=== PATIENT | female | born 1975 | race Caucasian/White ===

== ENCOUNTER 2018-01-13 09:19 | Emergency (ER) | payer OTHER ==
--- NOTE | 2018-01-13 09:40 | EDM.PDOC ---
ED HPI GENERAL MEDICAL PROBLEM - General Stated Complaint: CHEST PAIN Time Seen by Provider: 01/13/18 09:19 Source of Information: Reports: Patient, Family (so) History Limitations: Reports: No Limitations - History of Present Illness INITIAL COMMENTS - FREE TEXT/NARRATIVE: 42 y.o.w.f -smoker-came with her SO to the ed due to chest pain, weakness and dizziness. This is the first time this happened to her. Pt denies any cardiac reisfactors but Tobacco use. Cholesterol level was never checked in the past. Pt never eats breakfast, denies trauma. Pt describes the pain as burning pressure at her mid upper chest of 4/10 on the pain scale 0-10. No N/V/D no Diaphoresis or any other acute medical issues. BP 139/77 pulse 74 RR 16 Pulse ox 99% on RA temp 36.8 Onset Date: 01/13/18 Onset Time: 05:00 Duration: Hour(s):, Intermittent Location: Reports: Generalized Quality: Reports: Ache, Burning Severity: Moderate Improves with: Reports: Rest Worsens with: Reports: Movement Context: Reports: Other (smokes ) Associated Symptoms: Reports: Other (dizzy) left upper chest Pain Score (Numeric/FACES): 1 - Related Data Allergies Allergy/AdvReac Type Severity Reaction Status Date / Time Latex, Natural Rubber Allergy Itching Verified 01/13/18 09:37 prochlorperazine edisylate Allergy Vomiting Verified 01/13/18 09:37 [From Compazine] prochlorperazine maleate Allergy Vomiting Verified 01/13/18 09:37 [From Compazine] Home Meds: Home Meds Levothyroxine 112 mcg PO DAILY 12/19/14 [History] Past Medical History Other Musculoskeletal History: fx L ankle Social & Family History - Tobacco Use Smoking Status *Q: Current Every Day Smoker Years of Tobacco use: 25 - Alcohol Use Days Per Week of Alcohol Use: 0 - Recreational Drug Use Recreational Drug Use: No ED ROS GENERAL - Review of Systems Review Of Systems: See Below Constitutional: Reports: No Symptoms HEENT: Reports: No Symptoms Respiratory: Reports: No Symptoms Cardiovascular: Reports: Chest Pain Endocrine: Reports: No Symptoms GI/Abdominal: Reports: No Symptoms : Reports: No Symptoms Musculoskeletal: Reports: No Symptoms Skin: Reports: No Symptoms Neurological: Reports: No Symptoms Psychiatric: Reports: No Symptoms Hematologic/Lymphatic: Reports: No Symptoms Immunologic: Reports: No Symptoms ED EXAM, GENERAL - Physical Exam Exam: See Below Exam Limited By: No Limitations General Appearance: Alert, WD/WN, Mild Distress Eye Exam: Bilateral Eye: Normal Inspection Ears: Normal External Exam Ear Exam: Bilateral Ear: Auricle Normal Nose: Normal Inspection, Normal Mucosa, No Blood Throat/Mouth: Normal Inspection, Normal Lips, Normal Voice, No Airway Compromise Head: Atraumatic, Normocephalic Neck: Normal Inspection, Supple, Non-Tender, Full Range of Motion Respiratory/Chest: No Respiratory Distress, Lungs Clear, Normal Breath Sounds, No Accessory Muscle Use, Chest Non-Tender Cardiovascular: Normal Peripheral Pulses, Regular Rate, Rhythm, No Edema, No Gallop, No JVD, No Murmur Peripheral Pulses: 1+: Radial (L) GI/Abdominal: Normal Bowel Sounds, Soft, Non-Tender, No Organomegaly, No Abnormal Bruit, No Mass (Female) Exam: Deferred Rectal (Female) Exam: Deferred Back Exam: Normal Inspection, Full Range of Motion Extremities: Normal Inspection, Normal Range of Motion, Non-Tender, No Pedal Edema Neurological: Alert, Oriented, CN II-XII Intact, Normal Cognition, Normal Gait, No Motor/Sensory Deficits Psychiatric: Normal Affect, Normal Mood Skin Exam: Warm, Dry, Intact Lymphatic: No Adenopathy EKG INTERPRETATION EKG Date: 01/13/18 Time: 09:25 Rhythm: NSR Rate (Beats/Min): 77 [place]: Normal P-Wave: Present QRS: Normal ST-T: Normal QT: Normal Comparison: NA - No Prior EKG Course - Vital Signs Text/Narrative:: 42 y.o.w.f -smoker-came with her SO to the ed due to chest pain, weakness and dizziness. This is the first time this happened to her. Pt denies any cardiac reisfactors but Tobacco use. Cholesterol level was never checked in the past. Pt never eats breakfast, denies trauma. Pt describes the pain as burning pressure at her mid upper chest of 4/10 on the pain scale 0-10. No N/V/D no Diaphoresis or any other acute medical issues. BP 139/77 pulse 74 RR 16 Pulse ox 99% on RA temp 36.8 PE: WNWD W F came with her to the ed due to mi upper chest pain with weakness and dizziness, new event, smoker. Denies drug use. Imaging: CXR: NAD official report is pending Labs: CBC, BMP,D DImer and troponin were neg (4 hours Troponin level was neg as well) Chol/hdl ratio was elevated Impression: Atypical chest pain, Elevated cholesterol/HDL ratio Tx: NS, Protonix NTG one tabl SL 12.27 pm Consultation:Kevin Hospitalist: Repeat Troponin, if neg F/U in the clinic for a Cardiac stress test Reexam: Pt was entirely pain free when she left the ED with her Plan: D/C with instructions Last Recorded V/S: Last Vital Signs Temp 36.6 C 01/13/18 13:30 Pulse 65 01/13/18 13:30 Resp 15 01/13/18 13:30 BP 107/72 01/13/18 13:30 Pulse Ox 99 01/13/18 13:30 - Orders/Labs/Meds Orders: Active Orders 24 hr Category Date Time Status CXR [Chest 2V] [CR] Stat Exams 01/13/18 11:22 Taken HCG QUALITATIVE,URINE [URCHEM] Stat Lab 01/13/18 10:15 Ordered UA W/MICROSCOPIC [URIN] Stat Lab 01/13/18 10:15 Ordered EKG 12 Lead [EK] Routine Ther 01/13/18 09:55 Ordered Labs: Laboratory Tests 01/13/18 01/13/18 01/13/18 Range/Units 09:50 09:50 09:50 WBC 6.4 (4.5-12.0) X10-3/uL RBC 5.04 (3.23-5.20) x10(6)uL Hgb 12.6 (11.5-15.5) g/dL Hct 39.1 (30.0-51.3) % MCV 77.6 L (80-96) fL MCH 25.1 L (27.7-33.6) pg MCHC 32.3 (32.2-35.4) g/dL RDW 15.3 (11.5-15.5) % Plt Count 320 (125-369) X10(3)uL MPV 8.5 (7.4-10.4) fL Neut % (Auto) 72.4 (46-82) % Lymph % (Auto) 21.1 (13-37) % [place] % (Auto) 5.3 (4-12) % Eos % (Auto) 1 (1.0-5.0) % Baso % (Auto) 0 (0-2) % Neut # (Auto) 4.7 (1.6-8.3) # Lymph # (Auto) 1.3 (0.6-5.0) # [place] # (Auto) 0.3 (0.0-1.3) # Eos # (Auto) 0.1 (0.0-0.8) # Baso # (Auto) 0.0 (0.0-0.2) # PT 10.4 (8.7-11.1) INR 1.03 (0.89-1.13) D-Dimer, Quantitative 292 (100-400) ng/mL Sodium (135-145) mmol/L Potassium (3.5-5.3) mmol/L Chloride (100-110) mmol/L Carbon Dioxide (21-32) mmol/L BUN (7-18) mg/dL Creatinine (0.55-1.02) mg/dL Est Cr Clr Drug Dosing Estimated GFR (MDRD) (>60) BUN/Creatinine Ratio (9-20) Glucose (80-116) mg/dL Calcium (8.6-10.2) mg/dL Troponin I (<0.017-0.056) ng/mL Triglycerides (15-150) mg/dL Cholesterol (50-200) mg/dL LDL Cholesterol Direct (60-130) mg/dL HDL Cholesterol (40-75) mg/dL Cholesterol/HDL Ratio (0-5) TSH, Ultra Sensitive (0.36-3.74) IU/mL Urine Color (YELLOW) Urine Appearance (CLEAR) Urine pH (5.0-6.5) Ur Specific [place] (1.010-1.025) Urine Protein (NEGATIVE) mg/dL Urine Glucose (UA) (NEGATIVE) mg/dL Urine Ketones (NEGATIVE) mg/dL Urine Occult Blood (NEGATIVE) Urine Nitrite (NEGATIVE) Urine Bilirubin (NEGATIVE) Urine Urobilinogen (NEGATIVE) mg/dL Ur Leukocyte Esterase (NEGATIVE) Urine WBC (0) Ur Squamous Epith Cells (NS,R,O) Urine Bacteria (NS) Urine HCG, Qual (NEGATIVE) 01/13/18 01/13/1801/13/18 Range/Units 09:50 09:50 10:15 WBC (4.5-12.0) X10-3/uL RBC (3.23-5.20) x10(6)uL Hgb (11.5-15.5) g/dL Hct (30.0-51.3) % MCV (80-96) fL MCH (27.7-33.6) pg MCHC (32.2-35.4) g/dL RDW (11.5-15.5) % Plt Count (125-369) X10(3)uL MPV (7.4-10.4) fL Neut % (Auto) (46-82) % Lymph % (Auto) (13-37) % [place] % (Auto) (4-12) % Eos % (Auto) (1.0-5.0) % Baso % (Auto) (0-2) % Neut # (Auto) (1.6-8.3) # Lymph # (Auto) (0.6-5.0) # [place] # (Auto) (0.0-1.3) # Eos # (Auto) (0.0-0.8) # Baso # (Auto) (0.0-0.2) # PT (8.7-11.1) INR (0.89-1.13) D-Dimer, Quantitative (100-400) ng/mL Sodium 140 (135-145) mmol/L Potassium 3.5 (3.5-5.3) mmol/L Chloride 104 (100-110) mmol/L Carbon Dioxide 24 (21-32) mmol/L BUN 10 (7-18) mg/dL Creatinine 0.7 (0.55-1.02) mg/dL Est Cr Clr Drug Dosing TNP Estimated GFR (MDRD) > 60 (>60) BUN/Creatinine Ratio 14.3 (9-20) Glucose 112 (80-116) mg/dL Calcium 8.2 L (8.6-10.2) mg/dL Troponin I < 0.017 L (<0.017-0.056) ng/mL Triglycerides (15-150) mg/dL Cholesterol (50-200) mg/dL LDL Cholesterol Direct (60-130) mg/dL HDL Cholesterol (40-75) mg/dL Cholesterol/HDL Ratio (0-5) TSH, Ultra Sensitive 0.65 (0.36-3.74) IU/mL Urine Color Yellow (YELLOW) Urine Appearance Clear (CLEAR) Urine pH 7.0 H (5.0-6.5) Ur Specific [place] 1.010 (1.010-1.025) Urine Protein Negative (NEGATIVE) mg/dL Urine Glucose (UA) Normal (NEGATIVE) mg/dL Urine Ketones Negative (NEGATIVE) mg/dL Urine Occult Blood Negative (NEGATIVE) Urine Nitrite Negative (NEGATIVE) Urine Bilirubin Negative (NEGATIVE) Urine Urobilinogen Normal (NEGATIVE) mg/dL Ur Leukocyte Esterase Negative (NEGATIVE) Urine WBC 0-5 (0) Ur Squamous Epith Cells Few H (NS,R,O) Urine Bacteria Few H (NS) Urine HCG, Qual (NEGATIVE) 01/13/18 01/13/18 01/13/18 Range/Units 10:15 12:50 12:50 WBC (4.5-12.0) X10-3/uL RBC (3.23-5.20) x10(6)uL Hgb (11.5-15.5) g/dL Hct (30.0-51.3) % MCV (80-96) fL MCH (27.7-33.6) pg MCHC (32.2-35.4) g/dL RDW (11.5-15.5) % Plt Count (125-369) X10(3)uL MPV (7.4-10.4) fL Neut % (Auto) (46-82) % Lymph % (Auto) (13-37) % [place] % (Auto) (4-12) % Eos % (Auto) (1.0-5.0) % Baso % (Auto) (0-2) % Neut # (Auto) (1.6-8.3) # Lymph # (Auto) (0.6-5.0) # [place] # (Auto) (0.0-1.3) # Eos # (Auto) (0.0-0.8) # Baso # (Auto) (0.0-0.2) # PT (8.7-11.1) INR (0.89-1.13) D-Dimer, Quantitative (100-400) ng/mL Sodium (135-145) mmol/L Potassium (3.5-5.3) mmol/L Chloride (100-110) mmol/L Carbon Dioxide (21-32) mmol/L BUN (7-18) mg/dL Creatinine (0.55-1.02) mg/dL Est Cr Clr Drug Dosing Estimated GFR (MDRD) (>60) BUN/Creatinine Ratio (9-20) Glucose (80-116) mg/dL Calcium (8.6-10.2) mg/dL Troponin I < 0.017 L (<0.017-0.056) ng/mL Triglycerides 116 (15-150) mg/dL Cholesterol 170 (50-200) mg/dL LDL Cholesterol Direct 128 (60-130) mg/dL HDL Cholesterol 27 L (40-75) mg/dL Cholesterol/HDL Ratio 6.3 H (0-5) TSH, Ultra Sensitive (0.36-3.74) IU/mL Urine Color (YELLOW) Urine Appearance (CLEAR) Urine pH (5.0-6.5) Ur Specific [place] (1.010-1.025) Urine Protein (NEGATIVE) mg/dL Urine Glucose (UA) (NEGATIVE) mg/dL Urine Ketones (NEGATIVE) mg/dL Urine Occult Blood (NEGATIVE) Urine Nitrite (NEGATIVE) Urine Bilirubin (NEGATIVE) Urine Urobilinogen (NEGATIVE) mg/dL Ur Leukocyte Esterase (NEGATIVE) Urine WBC (0) Ur Squamous Epith Cells (NS,R,O) Urine Bacteria (NS) Urine HCG, Qual Negative (NEGATIVE) Meds: Medications Discontinued Medications Generic Name Dose Route Start Last Admin Trade Name Freq PRN Reason Stop Dose Admin Aspirin 324 mg 01/13/18 09:55 01/13/18 09:20 Aspirin PO 01/13/18 09:56 324 mg ONETIME ONE Administration Sodium Chloride 1,000 mls @ 125 mls/hr 01/13/18 09:45 01/13/18 10:12 Normal Saline IV 125 mls/hr ASDIRECTED DAREN Administration Nitroglycerin 0.4 mg 01/13/18 12:05 01/13/18 12:07 Nitrostat SL 01/13/18 12:06 0.4 mg ONETIME ONE Administration Pantoprazole Sodium 40 mg 01/13/18 09:43 01/13/18 10:28 Protonix Iv IVPUSH 01/13/18 09:44 40 mg ONETIME ONE Administration Departure - Departure Time of Disposition: 13:18 Disposition: Home, Self-Care 01 Condition: Good Clinical Impression: Atypical chest pain, Elevated ratio of cholesterol to high density lipoprotein Instructions: Cholesterol, [id number], Preventing High Cholesterol, Nonspecific Chest Pain, [id number] Referrals: Tim Brown MD [Primary Care Provider] - Forms: ED Department Discharge Additional Instructions: Please f/u with your PMD to be scheduled for a cardiac stress test. Please f/u, please come back if your symptoms get worse acutely - My Orders Last 24 Hours: My Active Orders 01/13/18 09:55 EKG 12 Lead [EK] Routine 01/13/18 10:15 HCG QUALITATIVE,URINE [URCHEM] Stat UA W/MICROSCOPIC [URIN] Stat 01/13/18 11:22 CXR [Chest 2V] [CR] Stat - Assessment/Plan Last 24 Hours: My Active Orders 01/13/18 09:55 EKG 12 Lead [EK] Routine 01/13/18 10:15 HCG QUALITATIVE,URINE [URCHEM] Stat UA W/MICROSCOPIC [URIN] Stat 01/13/18 11:22 CXR [Chest 2V] [CR] Stat
[2018-01-13] MEDS ORDERED: Pantoprazole 40 MG Vial IVPUSH ONE (09:43)
[2018-01-13] MEDS ORDERED: Sodium Chloride 0.9% 1,000 ML IV SCH (09:45)
[2018-01-13] MEDS ORDERED: Aspirin 81 MG Tab.Chew PO ONE (09:55)
[2018-01-13] MEDS ORDERED: Nitroglycerin 0.4 MG Tab.SL SL ONE (12:05)
[2018-01-13 13:39] VITALS: BP 107/72
--- NOTE | 2018-01-13 15:23 | CR ---
INDICATION: Chest pain. CHEST: PA and lateral views of the chest on 01/13/2018 - no comparisons. Heart is normal in size and shape. Mediastinum and bony thorax were, for the most part, unremarkable with a very minimal dextroconvex scoliosis of the mid thoracic spine. Overlying EKG leads are noted. An active infiltrate or effusion was not identified. Clips are noted at the base of the neck. IMPRESSION: No acute process. MTDD
== END 2018-01-13 13:30 | disposition home or self-care (01) ==
LOC: FB.ED 09:19
DX: R07.89 Other chest pain (principal); E78.00 Pure hypercholesterolemia, unspecified; E78.89 Other lipoprotein metabolism disorders; F17.210 Nicotine dependence, cigarettes, uncomplicated; Z88.8 Allergy status to other drugs, medicaments and biological substances; Z91.040 Latex allergy status
CPT/HCPCS: 36415; 71046; 80048; 80061; 81001; 81025; 84443; 84484; 85025; 85379; 85610; 93005; 96361; 96374; 99285; A9270; C9113; J7040

== ENCOUNTER 2019-03-15 18:25 | Emergency (ER) | payer OTHER ==
[2019-03-15] MEDS ORDERED: ALPRAZolam 0.5 MG Tab PO ONE (18:26)
[2019-03-15] MEDS ORDERED: Sodium Chloride 0.9% 10 ML Syringe FLUSH PRN (18:41)
[2019-03-15] MEDS ORDERED: Aspirin 81 MG Tab.Chew PO ONE (18:46)
[2019-03-15] MEDS ORDERED: Pantoprazole 40 MG Vial IVPUSH ONE (18:51)
[2019-03-15 19:21] VITALS: BP 155/89
--- NOTE | 2019-03-15 19:52 | EDM.PDOC ---
ED HPI GENERAL MEDICAL PROBLEM - General Chief Complaint: Chest Pain Stated Complaint: CHEST PAIN Time Seen by Provider: 03/15/19 19:47 Source of Information: Reports: Patient History Limitations: Reports: No Limitations - History of Present Illness INITIAL COMMENTS - FREE TEXT/NARRATIVE: Darline is a 43-year-old female with chest pain. She described retrosternal pain radiating to the neck that was of sudden onset along with difficulty breathing. Also was accompanied by palpitations did not respond to nitroglycerin glycerin or aspirin. She's had this before not thinning more frequently. She has cardiac workup in December of last year with stress echo that was negative.She does smoke and otherwise has no other risk factors. 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 ED EXAM, GENERAL - Physical Exam Exam: See Below Exam Limited By: No Limitations General Appearance: Alert, WD/WN, No Apparent Distress Nose: Normal Inspection Throat/Mouth: Normal Inspection Head: Atraumatic Respiratory/Chest: No Respiratory Distress Extremities: Normal Inspection Course - Vital Signs Last Recorded V/S: Last Vital Signs Temp Pulse 78 03/15/19 18:30 Resp 19 03/15/19 18:30 BP 155/89 H 03/15/19 18:30 Pulse Ox 100 03/15/19 18:30 - Orders/Labs/Meds Orders: Active Orders 24 hr Category Date Time Status EKG Documentation Completion [RC] ASDIRECTED Care 03/15/19 18:42 Active CXR [Chest 1V Frontal] [CR] Stat Exams 03/15/19 18:43 Taken Sodium Chloride 0.9% [Saline Flush] Med 03/15/19 18:41 Active 10 ml FLUSH ASDIRECTED PRN Saline Lock Insert [OM.PC] Routine Oth 03/15/19 18:41 Ordered EKG 12 Lead [EK] Stat Ther 03/15/19 18:41 Ordered Medication Orders Sodium Chloride (Saline Flush) 10 ml FLUSH ASDIRECTED PRN PRN Reason: Keep Vein Open Last Admin: 03/15/19 19:05 Dose: 10 ml Labs: Laboratory Tests 03/15/19 03/15/19 03/15/19 Range/Units 18:50 18:50 18:50 WBC 8.9 (4.5-12.0) X10-3/uL RBC 4.74 (3.23-5.20) x10(6)uL Hgb 11.1 L (11.5-15.5) g/dL Hct 34.6 (30.0-51.3) % MCV 73.0 L (80-96) fL MCH 23.4 L (27.7-33.6) pg MCHC 32.0 L (32.2-35.4) g/dL RDW 15.2 (11.5-15.5) % Plt Count 385 H (125-369) X10(3)uL MPV 8.1 (7.4-10.4) fL Neut % (Auto) 55.5 (46-82) % Lymph % (Auto) 35.0 (13-37) % [place] % (Auto) 7.8 (4-12) % Eos % (Auto) 1 (1.0-5.0) % Baso % (Auto) 0 (0-2) % Neut # (Auto) 5.0 (1.6-8.3) # Lymph # (Auto) 3.1 (0.6-5.0) # [place] # (Auto) 0.7 (0.0-1.3) # Eos # (Auto) 0.1 (0.0-0.8) # Baso # (Auto) 0.0 (0.0-0.2) # PT 9.7 (8.7-11.1) INR 1.00 (0.89-1.13) APTT 27.6 (24.4-33.2) SECONDS D-Dimer, Quantitative 0.56 (0.0-0.59) mg/LFEU Sodium 143 (135-145) mmol/L Potassium 3.7 (3.5-5.3) mmol/L Chloride 103 (100-110) mmol/L Carbon Dioxide 27 (21-32) mmol/L BUN 9 (7-18) mg/dL Creatinine 0.9 (0.55-1.02) mg/dL Est Cr Clr Drug Dosing TNP Estimated GFR (MDRD) > 60 (>60) BUN/Creatinine Ratio 10.0 (9-20) Glucose 97 (80-116) mg/dL Calcium 8.6 (8.6-10.2) mg/dL Total Bilirubin 0.3 (0.1-1.3) mg/dL AST 12 (5-25) IU/L ALT 18 (12-36) U/L Alkaline Phosphatase 88 (56-112) IU/L Troponin I (<0.017-0.056) ng/mL Total Protein 7.3 (6.0-8.0) g/dL Albumin 3.7 (3.5-5.2) g/dL Globulin 3.6 g/dL Albumin/Globulin Ratio 1.0 // Range/Units 18:50 WBC (4.5-12.0) X10-3/uL RBC (3.23-5.20) x10(6)uL Hgb (11.5-15.5) g/dL Hct (30.0-51.3) % MCV (80-96) fL MCH (27.7-33.6) pg MCHC (32.2-35.4) g/dL RDW (11.5-15.5) % Plt Count (125-369) X10(3)uL MPV (7.4-10.4) fL Neut % (Auto) (46-82) % Lymph % (Auto) (13-37) % [place] % (Auto) (4-12) % Eos % (Auto) (1.0-5.0) % Baso % (Auto) (0-2) % Neut # (Auto) (1.6-8.3) # Lymph # (Auto) (0.6-5.0) # [place] # (Auto) (0.0-1.3) # Eos # (Auto) (0.0-0.8) # Baso # (Auto) (0.0-0.2) # PT (8.7-11.1) INR (0.89-1.13) APTT (24.4-33.2) SECONDS D-Dimer, Quantitative (0.0-0.59) mg/LFEU Sodium (135-145) mmol/L Potassium (3.5-5.3) mmol/L Chloride (100-110) mmol/L Carbon Dioxide (21-32) mmol/L BUN (7-18) mg/dL Creatinine (0.55-1.02) mg/dL Est Cr Clr Drug Dosing Estimated GFR (MDRD) (>60) BUN/Creatinine Ratio (9-20) Glucose (80-116) mg/dL Calcium (8.6-10.2) mg/dL Total Bilirubin (0.1-1.3) mg/dL AST (5-25) IU/L ALT (12-36) U/L Alkaline Phosphatase (56-112) IU/L Troponin I 0.017 (<0.017-0.056) ng/mL Total Protein (6.0-8.0) g/dL Albumin (3.5-5.2) g/dL Globulin g/dL Albumin/Globulin Ratio Meds: Medications Generic Name Dose Route Start Last Admin Trade Name Freq PRN Reason Stop Dose Admin Sodium Chloride 10 ml 03/15/19 18:41 03/15/19 19:05 Saline Flush FLUSH 10 ml ASDIRECTED PRN Administration Keep Vein Open Discontinued Medications Generic Name Dose Route Start Last Admin Trade Name Freq PRN Reason Stop Dose Admin Aspirin 324 mg 03/15/19 18:46 03/15/19 19:04 Aspirin PO 03/15/19 18:47 324 mg ONETIME ONE Administration Pantoprazole Sodium 40 mg 03/15/19 18:51 03/15/19 19:05 Protonix Iv IVPUSH 03/15/19 18:52 40 mg ONETIME ONE Administration Departure - Departure Time of Disposition: 19:51 Disposition: Home, Self-Care 01 Clinical Impression: Atypical chest pain Referrals: PCP,None [Primary Care Provider] - - Problem List & Annotations (1) Atypical chest pain SNOMED Code(s): 969522639 Code(s): R07.89 - OTHER CHEST PAIN Status: Acute Current Visit: Yes - Problem List Review Problem List Initiated/Reviewed/Updated: Yes - Assessment/Plan Plan: All tests negative. Possibility of ACS is low. DC home,trial of xana 0.5 mg po daily prn. See me in 2 weeks.Return to ED with any worsening symptoms
--- NOTE | 2019-03-16 11:42 | CR ---
INDICATION: Chest pain. CHEST 1 VIEW: AP portable upright view of the chest 03/15/19 was compared with 01/13/18 and revealed the heart to remain normal size and shape. Mediastinum was essentially unremarkable. Overlying EKG leads are noted. An active infiltrate or effusion was not identified. There is suggestion of exogenous obesity. IMPRESSION: No acute process. MTDD
== END 2019-03-15 19:58 | disposition home or self-care (01) ==
LOC: FB.ED 18:25
DX: R07.89 Other chest pain (principal); E03.9 Hypothyroidism, unspecified; Z91.040 Latex allergy status; Z88.8 Allergy status to other drugs, medicaments and biological substances
CPT/HCPCS: 36415; 71045; 80053; 84484; 85025; 85379; 85610; 85730; 93005; 96374; 99285; A9270; C9113

== ENCOUNTER 2019-03-23 20:17 | Emergency (ER) | payer OTHER ==
--- NOTE | 2019-03-23 20:28 | EDM.PDOC ---
ED HPI GENERAL MEDICAL PROBLEM - General Stated Complaint: CHEST PAIN Time Seen by Provider: 03/23/19 20:23 Source of Information: Reports: Patient, Family History Limitations: Reports: No Limitations - History of Present Illness INITIAL COMMENTS - FREE TEXT/NARRATIVE: 43 y.o.w.f - smoker- was seen at [facility] for C/P. All her labs were basically nl. Pt was CP free when she left the the ED at [place]. She was scheduled for an EST at 8 am this Tuesday. Pt came to our ED with her due to acute left ant chest pain. Pt was taking ASA in am and was taking NTG as well without help. No diaphoresis No N/V, no Dizziness. Pt rates the pain as 10/ 10. 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 Musculoskeletal History: fx L ankle Endocrine/Metabolic History: Reports: Hypothyroidism Oncologic (Cancer) History: Reports: Thyroid - Past Surgical History Female Surgical History: Reports: Tubal Ligation Endocrine Surgical History: Reports: Thyroidectomy Social & Family History - Family History Family Medical History: Unobtainable - Caffeine Use Caffeine Use: Reports: Coffee, Soda ED ROS GENERAL - Review of Systems Review Of Systems: See Below Constitutional: Reports: No Symptoms HEENT: Reports: No Symptoms Respiratory: Reports: No Symptoms Cardiovascular: Reports: Chest Pain Endocrine: Reports: No Symptoms GI/Abdominal: Reports: No Symptoms : Reports: No Symptoms Musculoskeletal: Reports: No Symptoms Skin: Reports: No Symptoms Neurological: Reports: No Symptoms Psychiatric: Reports: No Symptoms Hematologic/Lymphatic: Reports: No Symptoms Immunologic: Reports: No Symptoms ED EXAM, GENERAL - Physical Exam Exam: See Below Exam Limited By: No Limitations General Appearance: Alert, WD/WN, Mild Distress Eye Exam: Bilateral Eye: Normal Inspection Ears: Normal External Exam Ear Exam: Bilateral Ear: Auricle Normal Nose: Normal Inspection, Normal Mucosa Throat/Mouth: Normal Inspection, Normal Lips, Normal Voice, No Airway Compromise Head: Atraumatic, Normocephalic Neck: Normal Inspection, Supple, Non-Tender, Full Range of Motion Respiratory/Chest: No Respiratory Distress, Lungs Clear, Other (tender left chest) Cardiovascular: Normal Peripheral Pulses, Regular Rate, Rhythm, No Edema Peripheral Pulses: 1+: Brachial (L) GI/Abdominal: Normal Bowel Sounds, Soft, Non-Tender, No Organomegaly, No Abnormal Bruit, No Mass, Pelvis Stable (Female) Exam: Deferred Rectal (Female) Exam: Deferred Back Exam: Normal Inspection, Full Range of Motion Extremities: Normal Inspection, Normal Range of Motion Neurological: Alert, Oriented, CN II-XII Intact, Normal Cognition Psychiatric: Normal Affect, Normal Mood Skin Exam: Warm, Dry, Intact, Normal Color, No Rash Lymphatic: No Adenopathy EKG INTERPRETATION EKG Date: 03/23/19 Time: 20:20 Rhythm: NSR Rate (Beats/Min): 61 Bimble: Normal P-Wave: Present QRS: Normal ST-T: Other (T Wave inversion II aVF, Old) QT: Normal Comparison: No Change (from ECG taken today at [place]) Course - Vital Signs Text/Narrative:: 43 y.o.w.f - smoker- was seen at [facility] for C/P. All her labs were basically nl. Pt was CP free when she left the the ED at [place]. She was scheduled for an EST at 8 am this Tuesday. Pt came to our ED with her due to acute left ant chest pain. Pt was taking ASA in am and was taking NTG as well without help. No diaphoresis No N/V, no Dizziness. Pt rates the pain as 10/ 10. BP 151/84 O2 sat 99% on RA RR 15 Pulse 63 Temp 36.8 PE: WNWD WF witj left ant Chest pain Labs: Troponoin 0.017 D Dimer 0.77 ECG: No change from her prev ECG taken at [place] Impression: chest pain Tx: Toradol Reexam: C/P subsided 80% Plan: D/C with instructions - Orders/Labs/Meds Orders: Active Orders 24 hr Category Date Time Status EKG Documentation Completion [RC] ASDIRECTED Care 03/23/19 20:23 Active Ang Chest [CT] Stat Exams 03/23/19 21:24 Taken Labs: Laboratory Tests 03/23/19 03/23/19 03/23/19 Range/Units 20:35 20:35 20:35 WBC 10.7 (4.5-12.0) X10-3/uL RBC 4.86 (3.23-5.20) x10(6)uL Hgb 11.3 L (11.5-15.5) g/dL Hct 35.5 (30.0-51.3) % MCV 73.1 L (80-96) fL MCH 23.2 L (27.7-33.6) pg MCHC 31.8 L (32.2-35.4) g/dL RDW 15.4 (11.5-15.5) % Plt Count 319 (125-369) X10(3)uL MPV 8.6 (7.4-10.4) fL Neut % (Auto) 69.2 (46-82) % Lymph % (Auto) 22.1 (13-37) % [place] % (Auto) 7.3 (4-12) % Eos % (Auto) 1 (1.0-5.0) % Baso % (Auto) 1 (0-2) % Neut # (Auto) 7.3 (1.6-8.3) # Lymph # (Auto) 2.4 (0.6-5.0) # [place] # (Auto) 0.8 (0.0-1.3) # Eos # (Auto) 0.1 (0.0-0.8) # Baso # (Auto) 0.1 (0.0-0.2) # PT 10.1 (8.7-11.1) INR 1.04 (0.89-1.13) D-Dimer, Quantitative 0.77 H (0.0-0.59) mg/LFEU Sodium 142 (135-145) mmol/L Potassium 3.2 L (3.5-5.3) mmol/L Chloride 105 (100-110) mmol/L Carbon Dioxide 23 (21-32) mmol/L BUN 10 (7-18) mg/dL Creatinine 0.8 (0.55-1.02) mg/dL Est Cr Clr Drug Dosing TNP Estimated GFR (MDRD) > 60 (>60) BUN/Creatinine Ratio 12.5 (9-20) Glucose 92 (80-116) mg/dL Calcium 9.0 (8.6-10.2) mg/dL Magnesium (1.8-2.5) mg/dL Troponin I (<0.017-0.056) ng/mL 03/23/19 03/23/19 Range/Units 20:35 20:35 WBC (4.5-12.0) X10-3/uL RBC (3.23-5.20) x10(6)uL Hgb (11.5-15.5) g/dL Hct (30.0-51.3) % MCV (80-96) fL MCH (27.7-33.6) pg MCHC (32.2-35.4) g/dL RDW (11.5-15.5) % Plt Count (125-369) X10(3)uL MPV (7.4-10.4) fL Neut % (Auto) (46-82) % Lymph % (Auto) (13-37) % [place] % (Auto) (4-12) % Eos % (Auto) (1.0-5.0) % Baso % (Auto) (0-2) % Neut # (Auto) (1.6-8.3) # Lymph # (Auto) (0.6-5.0) # [place] # (Auto) (0.0-1.3) # Eos # (Auto) (0.0-0.8) # Baso # (Auto) (0.0-0.2) # PT (8.7-11.1) INR (0.89-1.13) D-Dimer, Quantitative (0.0-0.59) mg/LFEU Sodium (135-145) mmol/L Potassium (3.5-5.3) mmol/L Chloride (100-110) mmol/L Carbon Dioxide (21-32) mmol/L BUN (7-18) mg/dL Creatinine (0.55-1.02) mg/dL Est Cr Clr Drug Dosing Estimated GFR (MDRD) (>60) BUN/Creatinine Ratio (9-20) Glucose (80-116) mg/dL Calcium (8.6-10.2) mg/dL Magnesium 2.1 (1.8-2.5) mg/dL Troponin I < 0.017 L (<0.017-0.056) ng/mL Meds: Medications Discontinued Medications Generic Name Dose Route Start Last Admin Trade Name Freq PRN Reason Stop Dose Admin Iopamidol 75 ml 03/23/19 21:31 03/23/19 21:48 Isovue-370 (76%) IV 03/23/19 21:32 75 ml ONETIME ONE Administration Ketorolac Tromethamine 60 mg 03/23/19 20:30 03/23/19 20:30 Toradol IM 03/23/19 20:31 60 mg ONETIME ONE Administration Potassium Chloride 40 meq 03/23/19 21:12 03/23/19 21:15 Klor-Con M20 PO 03/23/19 21:13 40 meq ONETIME ONE Administration Departure - Departure Time of Disposition: 23:22 Disposition: Home, Self-Care 01 Condition: Good Clinical Impression: Chest pain Qualifiers: Ischemic chest pain type: other angina pectoris type Referrals: Tim Brown MD [Primary Care Provider] - Forms: ED Department Discharge Additional Instructions: Please cont your pain meds as recommended, please f/u with [facility] for your Cardiac stress test as scheduled for 8 am. Please come back if your symptoms get worse acutely. - My Orders Last 24 Hours: My Active Orders 03/23/19 20:23 EKG Documentation Completion [RC] ASDIRECTED 03/23/19 21:24 Ang Chest [CT] Stat - Assessment/Plan Last 24 Hours: My Active Orders 03/23/19 20:23 EKG Documentation Completion [RC] ASDIRECTED 03/23/19 21:24 Ang Chest [CT] Stat
[2019-03-23] MEDS ORDERED: Ketorolac 60 MG/2 ML SDV IM ONE (20:30)
[2019-03-23] MEDS ORDERED: Potassium Chloride 20 MEQ Tab.ER PO ONE (21:12)
[2019-03-23] MEDS ORDERED: Iopamidol 755 Mg/ML 75 ML Bottle IV ONE (21:31)
== END 2019-03-23 23:40 | disposition home or self-care (01) ==
LOC: FB.ED 20:17
DX: I20.8 Other forms of angina pectoris (principal); E03.9 Hypothyroidism, unspecified; Z79.899 Other long term (current) drug therapy; Z88.8 Allergy status to other drugs, medicaments and biological substances; Z98.51 Tubal ligation status; Z91.040 Latex allergy status
CPT/HCPCS: 36415; 71275; 80048; 83735; 84484; 85025; 85379; 85610; 93005; 96372; 99285; A9270; J1885; Q9967

== ENCOUNTER 2019-03-26 23:33 | Emergency (ER) | payer OTHER ==
[2019-03-26] MEDS ORDERED: Cyclobenzaprine 10 MG Tab PO ONE (23:34)
[2019-03-26] MEDS ORDERED: Nitroglycerin 0.4 MG Tab.SL SL PRN (23:52)
--- NOTE | 2019-03-27 01:38 | EDM.PDOC ---
ED HPI GENERAL MEDICAL PROBLEM - General Chief Complaint: Upper Extremity Injury/Pain Stated Complaint: ARM PAIN Time Seen by Provider: 03/27/19 01:05 Source of Information: Reports: Patient History Limitations: Reports: No Limitations - History of Present Illness INITIAL COMMENTS - FREE TEXT/NARRATIVE: Patient is a very pleasant 43-year-old female who presents today with concern for left arm and shoulder pain which was worsening and she was trying to sleep tonight. She states that she relaxed into her bed, she had worsening pain from the back of her shoulder and down her left arm going below the elbow, so she went downstairs and checked her blood pressure and noted that it was 150/100 and she just didn't feel right. She went back upstairs, her up and came to the ER. She has had this sharp shooting pain before and was actually just recently evaluated emergency room for chest pain, up in [place] and recommended for high sensitivity stress test but it was not scheduled as it was supposed to be. She has had pain between her shoulder blades for some time and was recently referred to a general surgeon to remove a lump on her back. She has been using icy hot with lidocaine in the area and when her significant other rubs and it does cause referred pain into her left shoulder similar to what she is having now. She has not noticed any new dyspnea on exertion, was not sweaty, was not nauseous, was not short of breath and has not had any cough. She has not noticed any recent swelling in her legs, dizziness or syncope. She has no history of diabetes, but is a pack per day smoker. There is no significant family cardiac history. She was started on metoprolol 12.5 mg twice a day and a baby aspirin daily by the essentially ER last week and also given nitroglycerin but has not been willing to take it because she thought that she couldn't take along with the metoprolol since. 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 Musculoskeletal History: fx L ankle, lump in subcutaneous tissues of back thoracic area Endocrine/Metabolic History: Reports: Hypothyroidism Oncologic (Cancer) History: Reports: Thyroid - Past Surgical History Female Surgical History: Reports: Tubal Ligation Endocrine Surgical History: Reports: Thyroidectomy Dermatological Surgical History: Reports: Other (See Below) Social & Family History - Family History Family Medical History: Noncontributory - Tobacco Use Smoking Status *Q: Current Every Day Smoker Years of Tobacco use: 30 Packs/Tins Daily: 1 - Caffeine Use Caffeine Use: Reports: Coffee, Soda - Alcohol Use Alcohol Use History: No - Recreational Drug Use Recreational Drug Use: No ED ROS GENERAL - Review of Systems Review Of Systems: ROS reveals no pertinent complaints other than HPI. ED EXAM, GENERAL - Physical Exam Exam: See Below Free Text/Narrative:: Gen.: Alert, very pleasant in no acute distress. Neck is supple and movement of her neck does not reproduce any symptoms in her arms, she has full range of motion and negative Adson's test. Her strength is +5 out of 5 bilaterally in both the upper and lower extremities with no focal weakness on specific testing of the left arm. Her reflexes are +2 out of 4 in both the upper and lower extremities bilaterally. She has no sensation deficits. Heart is regular rate and rhythm, lungs are clear throughout with no wheezes or crackles. She has a freely mobile, well circumscribed approximately 2-3 cm lump just to the left side of her thoracic spine along her shoulder blade, and palpation over this area causes a shooting pain which nearly very directly reproduces all of her symptoms. She also has a couple of tender points in the upper trapezius area which also reproduces some of her symptoms. EKG INTERPRETATION Rhythm: NSR ST-T: Normal Comparison: No Change EKG Interpretation Comments: abnormality noted in T waves has been present since 2018 Course - Vital Signs Text/Narrative:: Initial evaluation completed in patient with history seems much more likely to be musculoskeletal than cardiac in origin at this point. She reports she has had these symptoms for some time, but has become worried because of the recent emphasis on her heart when she was sent to the emergency room after presenting to PT a week ago. She states that all of her symptoms are much better with movement, and she has not had any dyspnea, sweating, nausea or shortness of breath with activity. He does have some risk factors, most significantly being that she is a pack per day smoker. I spoke with the patient at length regarding workup tonight I do not think she necessarily needs a cardiac rule out at this time given her recent negative workup, but I did strongly encourage her to call in the morning regarding stress testing getting that rescheduled. If she is unable to get through up in [place] recommended she call her local PCP and see if they can help. She will need to have a stress test completed prior to any surgery to remove a lump on her back, and also will help guide any physical therapy if she does have recurrent arm pain during sessions. Also discussed at length signs and symptoms of angina, myocardial infarction, use of nitroglycerin and continue to abstain from use of NSAIDs at this time. I wonder about using gabapentin given the referred nerve pain in her back and left shoulder. I do not prescribe this medication out of the emergency room, but did offer to give her some Flexeril to try home and see if this helps her sleep. She was in agreement with this plan and will follow up with PCP on Tuesday as scheduled Last Recorded V/S: Last Vital Signs Temp 36.9 C 03/26/19 23:33 Pulse 73 03/27/19 00:03 Resp 17 03/26/19 23:33 BP 127/73 03/27/19 00:03 Pulse Ox 99 03/26/19 23:33 - Orders/Labs/Meds Meds: Medications Discontinued Medications Generic Name Dose Route Start Last Admin Trade Name Freq PRN Reason Stop Dose Admin Nitroglycerin 0.4 mg 03/26/19 23:52 03/26/19 23:53 Nitrostat SL 0.4 mg Q5M PRN Administration Chest Pain Departure - Departure Time of Disposition: 01:33 Disposition: Home, Self-Care 01 Condition: Good Clinical Impression: Shoulder pain, left - Discharge Information *PRESCRIPTION DRUG MONITORING PROGRAM REVIEWED*: Yes *COPY OF PRESCRIPTION DRUG MONITORING REPORT IN PATIENT RAKEL: No Referrals: Tim Brown MD [Primary Care Provider] - Forms: ED Department Discharge Additional Instructions: call number on paperwork in AM to see if stress test needs to be scheduled. If no information, call Dr. Engle's office and let them know you have been evaluated multiple times and need a stress test completed per the recommendations from last Tuesday as soon as possible. Follow-up on Tuesday with Dr. Engle. I suspect your pain is actually related to the interaction between muscles, nerves and the mechanics of your shoulder. there are lots of options for treatment, however it may take some time to figure out the right one. Physical therapy will likely be quite helpful. A small number of muscle relaxers given tonight you can try as well. Pain that IMPROVES with activity is unlikely to be related to your heart. Pain that WORSENS with activity, estefany if accompanied by sweats, nausea, or feeling like you might pass out -- take nitro if BP is elevated (greater than 140 top number) and see if improves. This kind of pain, discomfort or group of symptoms would also be reason to get rechecked in the ER. Blood pressure can be affected by pain, activity, stress/worry, but can also directly impact the heart as well, so elevated blood pressure with persistent above symptoms is also cause for concern. see handout for other information UNTIL YOUR HEART HAS BEEN TESTED IN A STRESS TEST, DO NOT FEEL ASHAMED/BAD/ WORRIED ABOUT RETURNING TO ER FOR RECHECK (even though I know its gotten annoying) Take very good care,
[2019-03-27 02:32] VITALS: BP 127/73; PULSE 73
== END 2019-03-27 02:00 | disposition home or self-care (01) ==
LOC: FB.ED 23:33
DX: M25.512 Pain in left shoulder (principal); I10 Essential (primary) hypertension; E03.9 Hypothyroidism, unspecified; F17.210 Nicotine dependence, cigarettes, uncomplicated; Z91.040 Latex allergy status; Z88.8 Allergy status to other drugs, medicaments and biological substances; Z79.899 Other long term (current) drug therapy
CPT/HCPCS: 99284; A9270

== ENCOUNTER 2019-04-02 20:20 | Emergency (ER) | payer OTHER ==
--- NOTE | 2019-04-02 21:21 | EDM.PDOC ---
ED HPI GENERAL MEDICAL PROBLEM - General Chief Complaint: Chest Pain Stated Complaint: CHEST PAIN Time Seen by Provider: 04/02/19 20:35 Source of Information: Reports: Patient, Old Records History Limitations: Reports: No Limitations - History of Present Illness INITIAL COMMENTS - FREE TEXT/NARRATIVE: Darline returns to [facility] ED for the 4th time in the past 18 days with stabbing pain in the L anterior chest that radiates into the medial L arm. Sxs appeared spontaneously with some palpitations, but no aure SOB, heaviness, sweats, or lt headiness. She has been worked up numerous times here at [facility] and has seen a magazine keeper in [place] for stress testing, results inconclusive at this time. A chest CT was also reportedly negative. She is currently taking an 81 mg ASA tab for prophylaxis, and no other analgesics. 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 Musculoskeletal History: fx L ankle, lump in subcutaneous tissues of back thoracic area Endocrine/Metabolic History: Reports: Hypothyroidism Oncologic (Cancer) History: Reports: Thyroid - Past Surgical History Female Surgical History: Reports: Tubal Ligation Endocrine Surgical History: Reports: Thyroidectomy Dermatological Surgical History: Reports: Other (See Below) Social & Family History - Family History Family Medical History: Noncontributory - Tobacco Use Smoking Status *Q: Current Every Day Smoker Years of Tobacco use: 30 Packs/Tins Daily: 1 - Caffeine Use Caffeine Use: Reports: Coffee, Soda ED ROS GENERAL - Review of Systems Review Of Systems: ROS reveals no pertinent complaints other than HPI. ED EXAM, GENERAL - Physical Exam Exam: See Below Exam Limited By: No Limitations General Appearance: Alert, WD/WN, No Apparent Distress, Anxious Nose: Normal Inspection Throat/Mouth: Normal Inspection, Normal Oropharynx Head: Atraumatic, Normocephalic Neck: Normal Inspection, Supple, Non-Tender, Full Range of Motion Respiratory/Chest: No Respiratory Distress, Lungs Clear, Normal Breath Sounds, No Accessory Muscle Use, Other (the L anterior chest wall is tender at the T4 level near costochondral junction, and can be duplicated near anteromedial chest. ) Cardiovascular: Normal Peripheral Pulses, Regular Rate, Rhythm, No Edema, No Gallop, No JVD, No Murmur, No Rub Back Exam: Other (moderate lipoma upper back) Extremities: Normal Inspection, Normal Range of Motion, Non-Tender Neurological: Alert, Oriented, CN II-XII Intact, Normal Cognition, Normal Gait, No Motor/Sensory Deficits Psychiatric: Normal Affect, Anxious Skin Exam: Warm, Dry, Intact, Normal Color, No Rash Lymphatic: No Adenopathy Course - Vital Signs Text/Narrative:: Darline improved clinically without intervention. The 12 lead EKG remained NSR without change. No labs were ordered. Last Recorded V/S: Last Vital Signs Temp 36.4 C 04/02/19 20:20 Pulse 74 04/02/19 20:20 Resp 13 04/02/19 20:20 BP 144/87 H 04/02/19 20:20 Pulse Ox 100 04/02/19 20:20 Departure - Departure Time of Disposition: 21:22 Disposition: Home, Self-Care 01 Condition: Good Clinical Impression: Atypical chest pain Referrals: Tim Brown MD [Primary Care Provider] - - Problem List & Annotations (1) Atypical chest pain SNOMED Code(s): 392636028 Code(s): R07.89 - OTHER CHEST PAIN Status: Acute Current Visit: Yes Annotation/Comment:: Probable intercostal neuralgia within the differential diagnosis. She will follow up in [place] with Cardiology, and Genl Surgery for lipoma removal. - Problem List Review Problem List Initiated/Reviewed/Updated: Yes - Assessment/Plan Plan: Follow up with [facility].
[2019-04-02 21:48] VITALS: BP 118/79; PULSE 83
== END 2019-04-02 21:34 | disposition home or self-care (01) ==
LOC: FB.ED 20:20
DX: R07.89 Other chest pain (principal); D17.1 Benign lipomatous neoplasm of skin and subcutaneous tissue of trunk; I10 Essential (primary) hypertension; E03.9 Hypothyroidism, unspecified; F17.210 Nicotine dependence, cigarettes, uncomplicated; Z79.82 Long term (current) use of aspirin; Z98.51 Tubal ligation status; Z91.040 Latex allergy status; Z88.8 Allergy status to other drugs, medicaments and biological substances; Z79.899 Other long term (current) drug therapy
CPT/HCPCS: 99284-25

== ENCOUNTER 2019-04-14 10:26 | Emergency (ER) | payer OTHER ==
[2019-04-14] MEDS ORDERED: Ondansetron 8 MG Tab.DIS PO ONE (10:37)
--- NOTE | 2019-04-14 10:38 | EDM.PDOC ---
ED HPI GENERAL MEDICAL PROBLEM - General Stated Complaint: UPPER BODY PAIN Time Seen by Provider: 04/14/19 10:26 Source of Information: Reports: Patient, Family History Limitations: Reports: No Limitations - History of Present Illness INITIAL COMMENTS - FREE TEXT/NARRATIVE: 44 y.o.w.f came with her So to the ed after she noticed a sudden onset of pain at her mid upper abd. and left back/shoulder are. No trauma. No N/V, denies eating spice food, does not smoke of drink. Pt did not have those symptoms in the past. Pt is scheduled to her the lipoma at her left upper back removed in April 2019. No N/V/D no SOB or chest pain. No other acute med issues. BP 133/ 69 RR 18 Pulse ox 99 Pulse 66 Temp 36.8 Onset Date: 04/14/19 Onset Time: 06:00 Duration: Hour(s): Location: Reports: Abdomen (epigastric) Quality: Reports: Burning, Dull Severity: Moderate Improves with: Reports: None Worsens with: Reports: None Context: Reports: Other (lipoma left upper back) Associated Symptoms: Reports: No Other Symptoms Left Upper Chest Pain Score (Numeric/FACES): 5 - Related Data Allergies Allergy/AdvReac Type Severity Reaction Status Date / Time Latex, Natural Rubber Allergy Itching Verified 03/25/19 06:13 prochlorperazine edisylate Allergy Vomiting Verified 03/25/19 06:13 [From Compazine] Home Meds: Home Meds Levothyroxine 125 mcg PO DAILY 03/25/19 [History] Metoprolol Tartrate 12.5 mg PO BID 03/27/19 [History] Aspirin [Halfprin] 81 mg PO DAILY 04/02/19 [History] Omeprazole 20 mg PO BID #60 tablet. 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 Musculoskeletal History: fx L ankle, lump in subcutaneous tissues of back thoracic area Endocrine/Metabolic History: Reports: Hypothyroidism Oncologic (Cancer) History: Reports: Thyroid - Past Surgical History Female Surgical History: Reports: Tubal Ligation Endocrine Surgical History: Reports: Thyroidectomy Dermatological Surgical History: Reports: Other (See Below) Social & Family History - Family History Family Medical History: Noncontributory - Caffeine Use Caffeine Use: Reports: Coffee, Soda ED ROS GENERAL - Review of Systems Review Of Systems: See Below Constitutional: Reports: No Symptoms HEENT: Reports: No Symptoms Respiratory: Reports: No Symptoms Cardiovascular: Reports: No Symptoms Endocrine: Reports: No Symptoms GI/Abdominal: Reports: Abdominal Pain (epigastric) : Reports: No Symptoms Musculoskeletal: Reports: Back Pain Skin: Reports: No Symptoms Neurological: Reports: No Symptoms Psychiatric: Reports: No Symptoms Hematologic/Lymphatic: Reports: No Symptoms Immunologic: Reports: No Symptoms ED EXAM, GI/ABD - Physical Exam Exam: See Below Exam Limited By: No Limitations General Appearance: Alert, WD/WN, Mild Distress Eyes: Bilateral: Normal Appearance Ears: Normal External Exam Nose: Normal Inspection Throat/Mouth: Normal Inspection Head: Atraumatic, Normocephalic Neck: Normal Inspection Respiratory/Chest: No Respiratory Distress Cardiovascular: Normal Peripheral Pulses, Regular Rate, Rhythm GI/Abdominal Exam: Tender (epigastric tenderness) (Female) Exam: Deferred Rectal (Female) Exam: Deferred Back Exam: Normal Inspection, Full Range of Motion Extremities: Normal Inspection, Normal Range of Motion, Non-Tender, No Pedal Edema, Normal Capillary Refill Skin Exam: Warm, Dry, Intact, Normal Color, Other (lipoma left upper back [id number]) Lymphatic: No Adenopathy Course - Vital Signs Text/Narrative:: 44 y.o.w.f came with her So to the ed after she noticed a sudden onset of pain at her mid upper abd. and left back/shoulder are. No trauma. No N/V, denies eating spice food, does not smoke of drink. Pt did not have those symptoms in the past. Pt is scheduled to her the lipoma at her left upper back removed in April 2019. No N/V/D no SOB or chest pain. No other acute med issues. BP 133/ 69 RR 18 Pulse ox 99 Pulse 66 Temp 36.8 PE: WNWD W F with epigastic byrne and left upper "body" pain Imaging: Not indicated Labs: Not indicated Impression: Gastritis/esophagitis, Lipoma left upper back Tx: Zofran, GI cocktail, Ultram Reexam: Epigastric pain subsided 100% with the GI cocktail. Pain at her left upper back improved with Ultram (pain possible related to her Lipoma) Plan: D/C with instructions Last Recorded V/S: Last Vital Signs Temp 36.8 C 04/14/19 10:26 Pulse 60 04/14/19 12:00 Resp 18 04/14/19 12:00 BP 123/75 04/14/19 12:00 Pulse Ox 99 04/14/19 12:00 - Orders/Labs/Meds Meds: Medications Discontinued Medications Generic Name Dose Route Start Last Admin Trade Name Tonia PRN Reason Stop Dose Admin Al Hydroxide/Mg Hydroxide 15 0 ml 04/14/19 10:53 04/14/19 11:05 ml/ Lidocaine HCl 15 ml PO 04/14/19 10:54 30 ml ONETIME STA Administration Ondansetron HCl 8 mg 04/14/19 10:37 04/14/19 10:54 Zofran Odt PO 04/14/19 10:38 8 mg ONETIME ONE Administration Tramadol HCl 100 mg 04/14/19 11:30 04/14/19 11:45 Ultram PO 04/14/19 11:31 100 mg ONETIME ONE Administration Departure - Departure Time of Disposition: 12:04 Disposition: Home, Self-Care 01 Condition: Good Clinical Impression: Lipoma of back Gastritis Qualifiers: Gastritis type: unspecified gastritis Chronicity: acute Gastritis bleeding: without bleeding Qualified Code(s): K29.00 - Acute gastritis without bleeding - Discharge Information Prescriptions: Omeprazole 20 mg PO BID #60 tablet. traMADol [Ultram] 50 mg PO Q4H PRN #10 tab PRN Reason: for severe pain Instructions: Coping with Quitting Smoking, Gastritis, Adult, [id number], Tramadol tablets, Steps to Quit Smoking, Omeprazole tablets (OTC) Referrals: Tim Brown MD [Primary Care Provider] - Forms: ED Department Discharge Additional Instructions: Please avoid spicy food, take the meds omeprazole and Ultram as recommended, please f/u come back if your symptoms get worse acutely
[2019-04-14] MEDS ORDERED: Alum Hydroxide/Mag Hydroxide 15 ML, Lidocaine 2% 15 ML PO STA ×2 (10:53)
[2019-04-14] MEDS ORDERED: traMADol 50 MG Tab PO ONE (11:30)
[2019-04-14 12:27] VITALS: BP 123/75; PULSE 60
== END 2019-04-14 12:15 | disposition home or self-care (01) ==
LOC: FB.ED 10:26
DX: K29.00 Acute gastritis without bleeding (principal); D17.1 Benign lipomatous neoplasm of skin and subcutaneous tissue of trunk; I10 Essential (primary) hypertension; E03.9 Hypothyroidism, unspecified; Z79.899 Other long term (current) drug therapy; Z98.51 Tubal ligation status; Z88.8 Allergy status to other drugs, medicaments and biological substances; Z91.040 Latex allergy status
CPT/HCPCS: 99283; A9270

== ENCOUNTER 2019-04-26 21:55 | Emergency (ER) | payer OTHER ==
[2019-04-26] MEDS ORDERED: Alum Hydroxide/Mag Hydroxide 15 ML, Lidocaine 2% 15 ML PO ONE ×2 (22:15)
[2019-04-26] MEDS ORDERED: Ketorolac 30 MG/ML SDV IVPUSH ONE (22:15)
--- NOTE | 2019-04-26 22:19 | EDM.PDOC ---
ED HPI GENERAL MEDICAL PROBLEM - General Stated Complaint: STOMACH PAIN Time Seen by Provider: 04/26/19 22:16 Source of Information: Reports: Patient History Limitations: Reports: No Limitations - History of Present Illness INITIAL COMMENTS - FREE TEXT/NARRATIVE: Dewey is a 44-year-old female with epigastric pain. Moderate to severe pain with no radiation. She's had similar pain before and was seen here on 04/14 given some omeprazole. She feels that this makes it worse. She also has mediastinal ,and saw cardiology today with the same symptoms. Burning pain associated with nausea but no constipation or vomiting. She also denies any chest pain. mid abd Pain Score (Numeric/FACES): 8 - Related Data Allergies Allergy/AdvReac Type Severity Reaction Status Date / Time Latex, Natural Rubber Allergy Itching Verified 04/26/19 23:09 prochlorperazine edisylate Allergy Vomiting Verified 04/26/19 23:09 [From Compazine] Home Meds: Home Meds Levothyroxine 125 mcg PO DAILY 03/25/19 [History] Metoprolol Tartrate 12.5 mg PO BID 03/27/19 [History] Aspirin [Halfprin] 81 mg PO DAILY 04/02/19 [History] Omeprazole 20 mg PO BID #60 tablet. 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 Musculoskeletal History: fx L ankle, lump in subcutaneous tissues of back thoracic area Endocrine/Metabolic History: Reports: Hypothyroidism Oncologic (Cancer) History: Reports: Thyroid - Past Surgical History Female Surgical History: Reports: Tubal Ligation Endocrine Surgical History: Reports: Thyroidectomy Dermatological Surgical History: Reports: Other (See Below) Social & Family History - Family History Family Medical History: Noncontributory - Caffeine Use Caffeine Use: Reports: Coffee, Soda ED ROS GENERAL - Review of Systems Review Of Systems: ROS reveals no pertinent complaints other than HPI. ED EXAM, GI/ABD - Physical Exam Exam: See Below Exam Limited By: No Limitations General Appearance: Alert, WD/WN Eyes: Bilateral: Normal Appearance, EOMI Neck: Normal Inspection Respiratory/Chest: No Respiratory Distress Cardiovascular: No Rub GI/Abdominal Exam: Normal Bowel Sounds, Distended, Guarding, Tender. No: Rebound, Abnormal Bowel Sounds Course - Vital Signs Last Recorded V/S: Last Vital Signs Temp 98.0 F 04/26/19 23:20 Pulse 72 04/26/19 23:20 Resp 17 04/26/19 23:20 BP 140/80 04/26/19 23:20 Pulse Ox 100 04/26/19 23:20 - Orders/Labs/Meds Orders: Active Orders 24 hr Category Date Time Status Abdomen Pelvis w Cont [CT] Stat Exams 04/26/19 22:15 Taken Labs: Laboratory Tests 04/26/19 04/26/19 Range/Units 22:22 22:22 WBC 8.0 (4.5-12.0) X10-3/uL RBC 4.72 (3.23-5.20) x10(6)uL Hgb 10.6 L (11.5-15.5) g/dL Hct 33.8 (30.0-51.3) % MCV 71.5 L (80-96) fL MCH 22.5 L (27.7-33.6) pg MCHC 31.4 L (32.2-35.4) g/dL RDW 15.5 (11.5-15.5) % Plt Count 345 (125-369) X10(3)uL MPV 8.2 (7.4-10.4) fL Neut % (Auto) 59.2 (46-82) % Lymph % (Auto) 29.8 (13-37) % [place] % (Auto) 9.2 (4-12) % Eos % (Auto) 2 (1.0-5.0) % Baso % (Auto) 0 (0-2) % Neut # (Auto) 4.8 (1.6-8.3) # Lymph # (Auto) 2.4 (0.6-5.0) # [place] # (Auto) 0.7 (0.0-1.3) # Eos # (Auto) 0.1 (0.0-0.8) # Baso # (Auto) 0.0 (0.0-0.2) # Sodium 142 (135-145) mmol/L Potassium 3.6 (3.5-5.3) mmol/L Chloride 107 (100-110) mmol/L Carbon Dioxide 26 (21-32) mmol/L BUN 10 (7-18) mg/dL Creatinine 0.8 (0.55-1.02) mg/dL Est Cr Clr Drug Dosing TNP Estimated GFR (MDRD) > 60 (>60) BUN/Creatinine Ratio 12.5 (9-20) Glucose 101 (80-116) mg/dL Calcium 8.3 L (8.6-10.2) mg/dL Total Bilirubin 0.3 (0.1-1.3) mg/dL AST 13 (5-25) IU/L ALT 20 D (12-36) U/L Alkaline Phosphatase 81 (56-112) IU/L Total Protein 7.1 (6.0-8.0) g/dL Albumin 3.3 L (3.5-5.2) g/dL Globulin 3.8 g/dL Albumin/Globulin Ratio 0.9 Meds: Medications Discontinued Medications Generic Name Dose Route Start Last Admin Trade Name Freq PRN Reason Stop Dose Admin Al Hydroxide/Mg Hydroxide 15 0 ml 04/26/19 22:15 04/26/19 22:48 ml/ Lidocaine HCl 15 ml PO 04/26/19 22:16 30 ml ONETIME ONE Administration Iopamidol 93 ml 04/26/19 22:26 04/26/19 22:37 Isovue-370 (76%) IV 04/26/19 22:27 93 ml . DIRECTED ONE Administration Ketorolac Tromethamine 30 mg 04/26/19 22:15 04/26/19 22:48 Toradol IVPUSH 04/26/19 22:16 30 mg ONETIME ONE Administration Magnesium Citrate 296 ml 04/26/19 23:10 04/26/19 23:14 Citrate Of Magnesia PO 04/26/19 23:11 Not Given ONETIME ONE Departure - Departure Time of Disposition: 18:09 Disposition: Home, Self-Care 01 Condition: Good Clinical Impression: Chest pain, Epigastric abdominal pain - Discharge Information Instructions: Constipation, Adult, [id number] Referrals: Tim Brown MD [Primary Care Provider] - Forms: ED Department Discharge Additional Instructions: follow up with your primary care as needed take magnesium citrate as recommended eat food has fiber like oatmeal - Problem List & Annotations (1) Epigastric abdominal pain SNOMED Code(s): 79320701 Code(s): R10.13 - EPIGASTRIC PAIN Status: Acute (2) Constipation SNOMED Code(s): 64935932 Code(s): K59.00 - CONSTIPATION, UNSPECIFIED Status: Acute Qualifiers: Constipation type: drug induced constipation Qualified Code(s): K59.03 - Drug induced constipation - Problem List Review Problem List Initiated/Reviewed/Updated: Yes - My Orders Last 24 Hours: My Active Orders 04/26/19 22:15 Abdomen Pelvis w Cont [CT] Stat - Assessment/Plan Last 24 Hours: My Active Orders 04/26/19 22:15 Abdomen Pelvis w Cont [CT] Stat Plan: CT showed colonic retention. I gave her Mag Citrate. Follow up PRN
[2019-04-26] MEDS ORDERED: Iopamidol 755 Mg/ML 100 ML Bottle IV ONE (22:26)
[2019-04-26] MEDS ORDERED: Magnesium Citrate Solution 296 ML Bottle PO ONE (23:10)
[2019-04-26 23:34] VITALS: BP 140/80; PULSE 72
== END 2019-04-26 23:21 | disposition home or self-care (01) ==
LOC: FB.ED 21:55
DX: R10.13 Epigastric pain (principal); R07.9 Chest pain, unspecified; I10 Essential (primary) hypertension; E03.9 Hypothyroidism, unspecified; Z79.899 Other long term (current) drug therapy; Z79.82 Long term (current) use of aspirin
CPT/HCPCS: 36415; 74177; 80053; 85025; 96374; 99284; A9270; J1885; Q9967

== ENCOUNTER 2019-05-07 14:36 | Emergency (ER) | payer OTHER ==
--- NOTE | 2019-05-07 16:11 | EDM.PDOC ---
ED HPI GENERAL MEDICAL PROBLEM - General Chief Complaint: Cardiovascular Problem Stated Complaint: CHEST PAIN Time Seen by Provider: 05/07/19 14:55 Source of Information: Reports: Patient, Old Records, Provider History Limitations: Reports: No Limitations - History of Present Illness INITIAL COMMENTS - FREE TEXT/NARRATIVE: started feeling unwell yesterday afternoon--like her heart was beating very fast. tired and a bit nauseous. Some pain in her left underarm, but this has been there a while. Mostly this stabbing feeling in her chest. Slightly flushed/hot feeling also, no fever. Hasn't felt well most of the summer, but nothing else new or acute - no cough, fever, runny nose, diarrhea, vomiting, numbness or tingling. Pain was not related to activity, did not radiate, cause sweating, or was associated with nausea. Today just feeling unwell all day so came to be evaluated. Has undergone recent extensive workup with cardiology, and was scheduled for surgery for a lipoma removal but that was held until cardiology workup was complete. Equivocal stress test, recommended PET, currently awaiting insurance approval for the test. Had also started PT, that is on hold as well. Flexeril and gabapentin have both been tried, she states they help her go to sleep. started menstrual cycle 5 days ago, states they are still regular. no family history regarding menopause as her mother had emergency hysterectomy at age 32 and she has no sisters. Multiple ER workups this summer for similar symptoms. - Related Data Allergies Allergy/AdvReac Type Severity Reaction Status Date / Time Latex, Natural Rubber Allergy Itching Verified 04/26/19 23:09 prochlorperazine edisylate Allergy Vomiting Verified 04/26/19 23:09 [From Compazine] Home Meds: Home Meds Levothyroxine 125 mcg PO DAILY 03/25/19 [History] Metoprolol Tartrate 12.5 mg PO BID 03/27/19 [History] Aspirin [Halfprin] 81 mg PO DAILY 04/02/19 [History] Omeprazole 20 mg PO BID #60 tablet. 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 Musculoskeletal History: fx L ankle, lump in subcutaneous tissues of back thoracic area Endocrine/Metabolic History: Reports: Hypothyroidism Oncologic (Cancer) History: Reports: Thyroid - Past Surgical History Female Surgical History: Reports: Tubal Ligation Endocrine Surgical History: Reports: Thyroidectomy Dermatological Surgical History: Reports: Other (See Below) Social & Family History - Family History Family Medical History: Noncontributory - Tobacco Use Smoking Status *Q: Current Every Day Smoker - Caffeine Use Caffeine Use: Reports: Coffee, Soda Caffeine Use Comment: none in last two months - Alcohol Use Alcohol Use History: No - Recreational Drug Use Recreational Drug Use: No - Living Situation & Occupation Living situation: Reports: Occupation: Employed Social History Comment: significant stress with ongoing health issues ED ROS GENERAL - Review of Systems Review Of Systems: ROS reveals no pertinent complaints other than HPI. ED EXAM, GENERAL - Physical Exam Exam: See Below Free Text/Narrative:: Gen.: Alert, slightly tearful. Head atraumatic, neck supple, pupils equal and reactive. His members moist. No cervical lymphadenopathy. Lungs are clear throughout with no wheezes or crackles and heart is regular rate and rhythm. Peripheral pulses +2 in both the upper and lower extremities and there is no lower extremity edema. Abdomen positive bowel sounds, soft and nontender. Skin is without rashes or lesions. Psych: Patient's affect is tearful and she is clearly frustrated, but she makes good eye contact and answers questions appropriate, no evidence of paranoia or hallucinations. EKG INTERPRETATION Rhythm: NSR P-Wave: Present QRS: Normal ST-T: Normal QT: Normal Comparison: No Change Course - Vital Signs Text/Narrative:: initial impression - chest pain, r/o MN, ?PE though symptoms are more described as palpitations, no infectious symptoms such as would suggest pneumonia. Labs ordered. given nearly 24 hours symptoms I think safe to r/o on 1 troponin Chart reviewed - patient has been in ER multiple times over the past months. Labs reviewed and notable for anemia, occasional low potassium. 1 elevated D- dimer with negative PE study, notes she had leg swelling at that time. Reports heavy periods, unchanged in the past year. Colonoscopy--no history of early family colon cancer, not indicated until age 50. Breast cancer screening up to date. Last Recorded V/S: Last Vital Signs Temp 36.8 C 05/07/19 14:36 Pulse 92 05/07/19 14:36 Resp 18 05/07/19 14:36 BP 151/98 H 05/07/19 14:36 Pulse Ox 99 05/07/19 14:36 - Orders/Labs/Meds Orders: Active Orders 24 hr Category Date Time Status Potassium Chloride [Klor-Con] Med 05/07/19 17:11 Once 40 meq PO ONETIME ONE Medication Orders Potassium Chloride (Klor-Con) 40 meq PO ONETIME ONE Stop: 05/07/19 17:12 Labs: Laboratory Tests 05/07/19 05/07/19 05/07/19 Range/Units 15:47 15:47 15:47 WBC 7.1 (4.5-12.0) X10-3/uL RBC 4.86 (3.23-5.20) x10(6)uL Hgb 11.1 L (11.5-15.5) g/dL Hct 34.5 (30.0-51.3) % MCV 71.1 L (80-96) fL MCH 22.8 L (27.7-33.6) pg MCHC 32.1 L (32.2-35.4) g/dL RDW 15.3 (11.5-15.5) % Plt Count 395 H (125-369) X10(3)uL MPV 8.6 (7.4-10.4) fL Neut % (Auto) 69.2 (46-82) % Lymph % (Auto) 21.4 (13-37) % [place] % (Auto) 7.8 (4-12) % Eos % (Auto) 1 (1.0-5.0) % Baso % (Auto) 0 (0-2) % Neut # (Auto) 4.9 (1.6-8.3) # Lymph # (Auto) 1.5 (0.6-5.0) # [place] # (Auto) 0.6 (0.0-1.3) # Eos # (Auto) 0.1 (0.0-0.8) # Baso # (Auto) 0.0 (0.0-0.2) # D-Dimer, Quantitative 0.50 (0.0-0.59) mg/LFEU Sodium 143 (135-145) mmol/L Potassium 3.0 L (3.5-5.3) mmol/L Chloride 106 (100-110) mmol/L Carbon Dioxide 27 (21-32) mmol/L BUN 8 (7-18) mg/dL Creatinine 0.6 (0.55-1.02) mg/dL Est Cr Clr Drug Dosing TNP Estimated GFR (MDRD) > 60 (>60) BUN/Creatinine Ratio 13.3 (9-20) Glucose 124 H (80-116) mg/dL Calcium 8.5 L (8.6-10.2) mg/dL Total Bilirubin 0.3 (0.1-1.3) mg/dL AST 12 (5-25) IU/L ALT 17 D (12-36) U/L Alkaline Phosphatase 74 (56-112) IU/L Troponin I (<0.017-0.056) ng/mL Total Protein 7.0 (6.0-8.0) g/dL Albumin 3.5 (3.5-5.2) g/dL Globulin 3.5 g/dL Albumin/Globulin Ratio 1.0 // Range/Units 15:47 WBC (4.5-12.0) X10-3/uL RBC (3.23-5.20) x10(6)uL Hgb (11.5-15.5) g/dL Hct (30.0-51.3) % MCV (80-96) fL MCH (27.7-33.6) pg MCHC (32.2-35.4) g/dL RDW (11.5-15.5) % Plt Count (125-369) X10(3)uL MPV (7.4-10.4) fL Neut % (Auto) (46-82) % Lymph % (Auto) (13-37) % [place] % (Auto) (4-12) % Eos % (Auto) (1.0-5.0) % Baso % (Auto) (0-2) % Neut # (Auto) (1.6-8.3) # Lymph # (Auto) (0.6-5.0) # [place] # (Auto) (0.0-1.3) # Eos # (Auto) (0.0-0.8) # Baso # (Auto) (0.0-0.2) # D-Dimer, Quantitative (0.0-0.59) mg/LFEU Sodium (135-145) mmol/L Potassium (3.5-5.3) mmol/L Chloride (100-110) mmol/L Carbon Dioxide (21-32) mmol/L BUN (7-18) mg/dL Creatinine (0.55-1.02) mg/dL Est Cr Clr Drug Dosing Estimated GFR (MDRD) (>60) BUN/Creatinine Ratio (9-20) Glucose (80-116) mg/dL Calcium (8.6-10.2) mg/dL Total Bilirubin (0.1-1.3) mg/dL AST (5-25) IU/L ALT (12-36) U/L Alkaline Phosphatase (56-112) IU/L Troponin I < 0.017 L (<0.017-0.056) ng/mL Total Protein (6.0-8.0) g/dL Albumin (3.5-5.2) g/dL Globulin g/dL Albumin/Globulin Ratio Meds: Medications Generic Name Dose Route Start Last Admin Trade Name Freq PRN Reason Stop Dose Admin Potassium Chloride 40 meq 05/07/19 17:11 Klor-Con PO 05/07/19 17:12 ONETIME ONE - Re-Assessments/Exams Free Text/Narrative Re-Assessment/Exam: 05/07/19 16:00 call placed to outpatient cardiology office regarding testing results. Lexiscan had been equivocal, and last cardiology appointment notes recommended PET prior to angiogram. Awaiting insurance prior-authorization for test. I requested this be done urgently and nursing said she would message that through, as patient is limited in her options until the cardiac workup is complete. labs returned negative except for slightly low potassium, ongoing anemia dose of K replacement given here see discharge instructions recommended considering outpatient therapy/mental health counselor for support, would prevent adding another medication (for mood) but likely be very beneficial given how long this has been going on to help deal with the stress doing ok with flexeril or gabapentin at this point Departure - Departure Time of Disposition: 17:05 Disposition: Home, Self-Care 01 Condition: Fair Clinical Impression: Palpitations, Atypical chest pain - Discharge Information *PRESCRIPTION DRUG MONITORING PROGRAM REVIEWED*: Not Applicable *COPY OF PRESCRIPTION DRUG MONITORING REPORT IN PATIENT RAKEL: Not Applicable Instructions: Nonspecific Chest Pain, [id number] Referrals: PCP,None [Primary Care Provider] - Forms: ED Department Discharge Additional Instructions: recommended finding counselor (or even just health transformation coach/support person) if able and meet with regularly to help with symptoms of stress and ongoing chronic illness...this is often as good as medication in managing the anxiety and uncertainty that come with health issues, (especially since hopefully many of your symptoms will improve once medical workup is done) it helps alleviate some of the family stress too call placed to cardiologists office today recommending they expedite the insurance paperwork To complete the testing dose of potassium replacement given today. Of note, your hemoglobin is also low , and there is no reason you cannot take iron supplements as long as you are still menstruating. This might be something to talk to Dr. Engle about to make sure there is no other testing needed for sources of anemia such as from stomach or GI tract Green leafy vegetables-- one of the most important sources of potassium, red meats are generally one of the best sources for iron but probably need a supplement for iron at this point - My Orders Last 24 Hours: My Active Orders 05/07/19 17:11 Potassium Chloride [Klor-Con] 40 meq PO ONETIME ONE - Assessment/Plan Last 24 Hours: My Active Orders 05/07/19 17:11 Potassium Chloride [Klor-Con] 40 meq PO ONETIME ONE
[2019-05-07 17:01] VITALS: BP 151/98; PULSE 92
[2019-05-07] MEDS ORDERED: Potassium Chloride 20 MEQ Packet PO ONE (17:11)
== END 2019-05-07 17:40 | disposition home or self-care (01) ==
LOC: FB.ED 14:36
DX: R07.89 Other chest pain (principal); I10 Essential (primary) hypertension; E03.9 Hypothyroidism, unspecified; F17.200 Nicotine dependence, unspecified, uncomplicated; Z91.040 Latex allergy status; Z88.8 Allergy status to other drugs, medicaments and biological substances; Z79.82 Long term (current) use of aspirin; Z79.899 Other long term (current) drug therapy
CPT/HCPCS: 36415; 80053; 84484; 85025; 85379; 99284; A9270

== ENCOUNTER 2019-06-05 20:13 | Emergency (ER) | payer OTHER ==
--- NOTE | 2019-06-05 21:09 | EDM.PDOC ---
ED HPI GENERAL MEDICAL PROBLEM - General Stated Complaint: DIZZINESS,LIGHTHEADED Time Seen by Provider: 06/05/19 21:05 Source of Information: Reports: Patient History Limitations: Reports: No Limitations - History of Present Illness INITIAL COMMENTS - FREE TEXT/NARRATIVE: 44 you with epigastric pain,retrosternal. Also has had some episodic dizziness, clamminess and constipation. No SOB,headache fever or chill. She endorses nausea , and took some Zofran with some relief. She has a h/o chest pain,which has been worked up thoroughly and has been negative for ischemia. - Related Data Allergies Allergy/AdvReac Type Severity Reaction Status Date / Time Latex, Natural Rubber Allergy Itching Verified 05/07/19 20:17 prochlorperazine edisylate Allergy Vomiting Verified 05/07/19 20:17 [From Compazine] Home Meds: Home Meds Levothyroxine 125 mcg PO DAILY 03/25/19 [History] Metoprolol Tartrate 12.5 mg PO BID 03/27/19 [History] Aspirin [Halfprin] 81 mg PO DAILY 04/02/19 [History] Omeprazole 20 mg PO BID #60 tablet. 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 Musculoskeletal History: fx L ankle, lump in subcutaneous tissues of back thoracic area Endocrine/Metabolic History: Reports: Hypothyroidism Oncologic (Cancer) History: Reports: Thyroid - Past Surgical History Female Surgical History: Reports: Tubal Ligation Endocrine Surgical History: Reports: Thyroidectomy Dermatological Surgical History: Reports: Other (See Below) Social & Family History - Family History Family Medical History: Noncontributory - Caffeine Use Caffeine Use: Reports: Coffee, Soda Caffeine Use Comment: none in last two months - Living Situation & Occupation Living situation: Reports: Occupation: Employed ED ROS GENERAL - Review of Systems Review Of Systems: ROS reveals no pertinent complaints other than HPI. ED EXAM, DIZZINESS - Physical Exam Exam: See Below Exam Limited By: No Limitations General Appearance: Alert, WD/WN, No Apparent Distress Ears: Normal External Exam Nose: Normal Inspection Throat/Mouth: Normal Inspection Head Exam: Atraumatic Neck: Normal Inspection Respiratory/Chest: No Respiratory Distress Cardiovascular: Normal Peripheral Pulses, Regular Rate, Rhythm GI/Abdominal: Normal Bowel Sounds, Soft, Tender (Epigastrium) EKG INTERPRETATION EKG Date: 06/05/19 Rhythm: NSR [place]: Normal Comparison: No Change Course - Orders/Labs/Meds Orders: Active Orders 24 hr Category Date Time Status EKG Documentation Completion [RC] ASDIRECTED Care 06/05/19 20:31 Active EKG 12 Lead [EK] Routine Ther 06/05/19 20:31 Ordered Labs: Laboratory Tests 06/05/19 06/05/19 06/05/19 Range/Units 20:50 20:50 20:50 WBC 7.7 (4.5-12.0) X10-3/uL RBC 4.88 (3.23-5.20) x10(6)uL Hgb 10.6 L (11.5-15.5) g/dL Hct 33.6 (30.0-51.3) % MCV 68.9 L (80-96) fL MCH 21.8 L (27.7-33.6) pg MCHC 31.7 L (32.2-35.4) g/dL RDW 15.6 H (11.5-15.5) % Plt Count 493 H (125-369) X10(3)uL MPV 8.3 (7.4-10.4) fL Neut % (Auto) 57.3 (46-82) % Lymph % (Auto) 33.6 (13-37) % [place] % (Auto) 6.3 (4-12) % Eos % (Auto) 2 (1.0-5.0) % Baso % (Auto) 0 (0-2) % Neut # (Auto) 4.4 (1.6-8.3) # Lymph # (Auto) 2.6 (0.6-5.0) # [place] # (Auto) 0.5 (0.0-1.3) # Eos # (Auto) 0.2 (0.0-0.8) # Baso # (Auto) 0.0 (0.0-0.2) # Sodium 139 (135-145) mmol/L Potassium 3.5 (3.5-5.3) mmol/L Chloride 103 (100-110) mmol/L Carbon Dioxide 25 (21-32) mmol/L BUN 9 (7-18) mg/dL Creatinine 0.8 (0.55-1.02) mg/dL Est Cr Clr Drug Dosing TNP Estimated GFR (MDRD) > 60 (>60) BUN/Creatinine Ratio 11.3 (9-20) Glucose 170 H (80-116) mg/dL Calcium 8.1 L (8.6-10.2) mg/dL Troponin I < 0.017 L (<0.017-0.056) ng/mL Departure - Departure Time of Disposition: 21:17 Disposition: Home, Self-Care 01 Condition: Good Clinical Impression: Atypical chest pain Gastritis Qualifiers: Gastritis type: unspecified gastritis Chronicity: acute Gastritis bleeding: without bleeding Qualified Code(s): K29.00 - Acute gastritis without bleeding - Discharge Information Referrals: PCP,Not In Area [Primary Care Provider] - - Problem List & Annotations (1) Chest pain SNOMED Code(s): 38592162 Code(s): R07.9 - CHEST PAIN, UNSPECIFIED Status: Acute Current Visit: No Qualifiers: Ischemic chest pain type: other angina pectoris type (2) Epigastric abdominal pain SNOMED Code(s): 02239762 Code(s): R10.13 - EPIGASTRIC PAIN Status: Acute Current Visit: No - Problem List Review Problem List Initiated/Reviewed/Updated: Yes - My Orders Last 24 Hours: My Active Orders 06/05/19 20:31 EKG Documentation Completion [RC] ASDIRECTED EKG 12 Lead [EK] Routine - Assessment/Plan Last 24 Hours: My Active Orders 06/05/19 20:31 EKG Documentation Completion [RC] ASDIRECTED EKG 12 Lead [EK] Routine Plan: All labs look good. may need an upper GI. Start Prilosec OTC 20 mg daily for 2 weeks. See PCP in 1 week
[2019-06-05 22:27] VITALS: BP 106/78; PULSE 66
== END 2019-06-05 21:40 | disposition home or self-care (01) ==
LOC: FB.ED 20:13
DX: K29.00 Acute gastritis without bleeding (principal); R07.89 Other chest pain; I10 Essential (primary) hypertension; Z91.040 Latex allergy status; Z88.8 Allergy status to other drugs, medicaments and biological substances; Z79.899 Other long term (current) drug therapy; Z79.82 Long term (current) use of aspirin; Z98.51 Tubal ligation status; Z98.890 Other specified postprocedural states
CPT/HCPCS: 36415; 80048; 84484; 85025; 93005; 99284-25

== ENCOUNTER 2019-06-12 19:50 | Emergency (ER) | payer OTHER ==
[2019-06-12 20:06] VITALS: BP 131/87; PULSE 82
[2019-06-12] MEDS ORDERED: Ketorolac 60 MG/2 ML SDV IM ONE (20:11)
--- NOTE | 2019-06-12 20:18 | EDM.PDOC ---
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, did not eat this AM, had an EGD in [place] in the early PM which was neg for GI sxs, not had EGD before got home at 2:30p, ate a lunch then, had fluids to drink, did not eat supper yet here with sig other did not take meds at home for BROWN has h/o freq HAs and freq ED visits - Related Data Allergies Allergy/AdvReac Type Severity Reaction Status Date / Time Latex, Natural Rubber Allergy Itching Verified 06/12/19 20:08 orange juice Allergy Other Verified 06/12/19 20:08 prochlorperazine edisylate Allergy Vomiting Verified 06/12/19 20:08 [From Compazine] aspirin Allergy Rash Uncoded 06/12/19 20:08 Home Meds: Home Meds Levothyroxine 125 mcg PO DAILY 03/25/19 [History] Metoprolol Tartrate 12.5 mg PO BID 03/27/19 [History] Ondansetron [Ondansetron ODT] 4 mg PO Q6H PRN 06/05/19 [History] Esomeprazole [NexIUM] 20 mg PO DAILY 06/12/19 [History] Past Medical History Cardiovascular History: Reports: Hypertension 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 Musculoskeletal History: fx L ankle, lump in subcutaneous tissues of back thoracic area Endocrine/Metabolic History: Reports: Hypothyroidism Oncologic (Cancer) History: Reports: Thyroid - Past Surgical History Female Surgical History: Reports: Tubal Ligation Endocrine Surgical History: Reports: Thyroidectomy Dermatological Surgical History: Reports: Other (See Below) Social & Family History - Family History Family Medical History: Noncontributory - Caffeine Use Caffeine Use: Reports: Coffee, Soda Caffeine Use Comment: none in last two months - Living Situation & Occupation Living situation: Reports: Occupation: Employed ED ROS GENERAL - Review of Systems Review Of Systems: See Below Constitutional: Reports: No Symptoms HEENT: Reports: No Symptoms Respiratory: Reports: No Symptoms Cardiovascular: Reports: No Symptoms Endocrine: Reports: No Symptoms GI/Abdominal: Reports: No Symptoms : Reports: No Symptoms Musculoskeletal: Reports: No Symptoms Skin: Reports: No Symptoms Neurological: Reports: Headache Psychiatric: Reports: No Symptoms Hematologic/Lymphatic: Reports: No Symptoms Immunologic: Reports: No Symptoms - Physical Exam Exam: See Below Exam Limited By: No Limitations General Appearance: Alert, WD/WN, No Apparent Distress Eye Exam: Bilateral Eye: EOMI, PERRL, Other (4/4 mm) Ears: Normal External Exam Nose: Normal Inspection, Normal Mucosa, No Blood Throat/Mouth: Normal Inspection, Normal Lips, Normal Oropharynx, No Airway Compromise Head Exam: Atraumatic, Normocephalic Neck: Normal Inspection, Supple, Non-Tender, Full Range of Motion Respiratory/Chest: No Respiratory Distress, Lungs Clear, Normal Breath Sounds, No Accessory Muscle Use Cardiovascular: Regular Rate, Rhythm, No Edema, No JVD, No Murmur GI/Abdominal: Soft, Non-Tender, No Distention Neuro Exam (Abbreviated): Alert, Oriented, CN II-XII Intact, Normal Cognition, No Motor/Sensory Deficits, Other (alert, conversant, good eye contact, no apparent distress, no visual limitations) Back Exam: Normal Inspection, Full Range of Motion Extremities: Normal Inspection, Normal Range of Motion, Non-Tender, No Pedal Edema Psychiatric: Normal Affect, Normal Mood Skin Exam: Warm, Dry, Intact, Normal Color, No Rash Course - Vital Signs Last Recorded V/S: Last Vital Signs Temp 36.8 C 06/12/19 19:55 Pulse 82 06/12/19 19:55 Resp 18 06/12/19 19:55 BP 131/87 06/12/19 19:55 Pulse Ox 96 06/12/19 19:55 - Orders/Labs/Meds Orders: Active Orders 24 hr Category Date Time Status Ketorolac [Toradol] Med 06/12/19 20:11 Once 60 mg IM ONETIME ONE Departure - Departure Time of Disposition: 20:40 Disposition: Home, Self-Care 01 Condition: Good Clinical Impression: Tension-type headache, Mild dehydration - Discharge Information *PRESCRIPTION DRUG MONITORING PROGRAM REVIEWED*: Not Applicable *COPY OF PRESCRIPTION DRUG MONITORING REPORT IN PATIENT RAKEL: Not Applicable Referrals: PCP,Unknown [Primary Care Provider] - Additional Instructions: Increase fluids without caffeine tonight. Eat a small supper when you get home. Get adequate rest tonight. May work tomorrow if feeling better and you sleep well. Take a dose of acetaminophen 500 mg 2 tabs and ibuprofen 200 mg 3 tabs every 6 hours as needed. Take a dose when you get up in the morning. Use ice packs on the forehead for 10 minutes every 2 hours while awake as needed. See your doctor tomorrow if not feeling better. Return to ED if you are feeling worse. - My Orders Last 24 Hours: My Active Orders 06/12/19 20:11 Ketorolac [Toradol] 60 mg IM ONETIME ONE - Assessment/Plan Last 24 Hours: My Active Orders 06/12/19 20:11 Ketorolac [Toradol] 60 mg IM ONETIME ONE
== END 2019-06-12 20:30 | disposition home or self-care (01) ==
LOC: FB.ED 19:50
DX: G44.209 Tension-type headache, unspecified, not intractable (principal); E86.0 Dehydration; I10 Essential (primary) hypertension; E03.9 Hypothyroidism, unspecified; Z88.8 Allergy status to other drugs, medicaments and biological substances; Z91.018 Allergy to other foods; Z91.040 Latex allergy status; Z79.899 Other long term (current) drug therapy
CPT/HCPCS: 96372; 99283; J1885

== ENCOUNTER 2019-07-25 21:11 | Emergency (ER) | payer OTHER ==
[2019-07-25] MEDS ORDERED: LORazepam 2 MG/ML SDV IM ONE (21:31)
--- NOTE | 2019-07-25 21:49 | EDM.PDOC ---
ED HPI GENERAL MEDICAL PROBLEM - General Stated Complaint: CHEST PAIN Time Seen by Provider: 07/25/19 21:45 Source of Information: Reports: Patient History Limitations: Reports: No Limitations - History of Present Illness INITIAL COMMENTS - FREE TEXT/NARRATIVE: Darline is a 44 yo female with chronic chest pain who present wit\h palpitations Started tonight while watching TV. She feels her heart pounding in her ears and her eyes. No headache. Has left side and arm pain,for which she was recently seen in [place] for. She has small vessel CAD,after thorough work up. She has a monitor also to monitor her heart rhythm. She denies any SOB,or anxiety. left arm Pain Score (Numeric/FACES): 7 - Related Data Allergies Allergy/AdvReac Type Severity Reaction Status Date / Time Latex, Natural Rubber Allergy Itching Verified 07/25/19 21:27 orange juice Allergy Other Verified 07/25/19 21:27 prochlorperazine edisylate Allergy Vomiting Verified 07/25/19 21:27 [From Compazine] aspirin Allergy Rash Uncoded 06/12/19 20:08 Home Meds: Home Meds Levothyroxine 125 mcg PO DAILY 03/25/19 [History] Metoprolol Tartrate 12.5 mg PO BID 03/27/19 [History] Ondansetron [Ondansetron ODT] 4 mg PO Q6H PRN 06/05/19 [History] Esomeprazole [NexIUM] 20 mg PO DAILY 06/12/19 [History] Past Medical History Cardiovascular History: Reports: Hypertension Gastrointestinal History: Reports: Other (See Below) Other Gastrointestinal History: Stomach problems. 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 Musculoskeletal History: fx L ankle, lump in subcutaneous tissues of back thoracic area Endocrine/Metabolic History: Reports: Hypothyroidism Oncologic (Cancer) History: Reports: Thyroid - Past Surgical History Female Surgical History: Reports: Tubal Ligation Endocrine Surgical History: Reports: Thyroidectomy Dermatological Surgical History: Reports: Other (See Below) Social & Family History - Family History Family Medical History: Noncontributory - Caffeine Use Caffeine Use: Reports: Coffee, Soda Caffeine Use Comment: none in last two months - Living Situation & Occupation Living situation: Reports: Occupation: Employed ED ROS GENERAL - Review of Systems Review Of Systems: ROS reveals no pertinent complaints other than HPI. ED EXAM, GENERAL - Physical Exam Exam: See Below Exam Limited By: No Limitations General Appearance: Alert, WD/WN, No Apparent Distress Ears: Normal External Exam Nose: Normal Inspection Throat/Mouth: Normal Inspection Neck: Normal Inspection Respiratory/Chest: No Respiratory Distress Cardiovascular: Normal Peripheral Pulses, Regular Rate, Rhythm, No Edema, No Gallop. No: No JVD, No Murmur, No Rub, JVD, Bradycardia, Tachycardia, Systolic Murmur EKG INTERPRETATION Rhythm: NSR [place]: Normal Course - Vital Signs Last Recorded V/S: Last Vital Signs Temp 98.0 F 07/25/19 21:45 Pulse 68 07/25/19 21:45 Resp 18 07/25/19 21:45 BP 114/60 07/25/19 21:45 Pulse Ox 99 07/25/19 21:45 - Orders/Labs/Meds Meds: Medications Discontinued Medications Generic Name Dose Route Start Last Admin Trade Name Freq PRN Reason Stop Dose Admin Lorazepam 0.5 mg 07/25/19 21:31 07/25/19 21:36 Ativan IM 07/25/19 21:32 0.5 mg ONETIME ONE Administration Departure - Departure Time of Disposition: 21:48 Disposition: Home, Self-Care 01 Condition: Good Clinical Impression: Chest pain Instructions: Palpitations, [id number] Referrals: PCP,None [Primary Care Provider] - Forms: ED Department Discharge Additional Instructions: follow up with your primary care as needed - Problem List & Annotations (1) Palpitations SNOMED Code(s): 74715909 Code(s): R00.2 - PALPITATIONS Status: Acute (2) Atypical chest pain SNOMED Code(s): 207380427 Code(s): R07.89 - OTHER CHEST PAIN Status: Acute - Problem List Review Problem List Initiated/Reviewed/Updated: Yes - Assessment/Plan Plan: I gave her 0.5 mg Lorazepam.DC home.Return with any worsening symptoms.
[2019-07-25 22:29] VITALS: BP 114/60; PULSE 68
== END 2019-07-25 22:02 | disposition home or self-care (01) ==
LOC: FB.ED 21:11
DX: R07.9 Chest pain, unspecified (principal); I10 Essential (primary) hypertension; E03.9 Hypothyroidism, unspecified; Z88.6 Allergy status to analgesic agent; Z91.040 Latex allergy status; Z88.8 Allergy status to other drugs, medicaments and biological substances; Z91.018 Allergy to other foods; Z79.899 Other long term (current) drug therapy
CPT/HCPCS: 96372; 99284; J2060

== ENCOUNTER 2019-08-17 09:21 | Emergency (ER) | payer OTHER ==
--- NOTE | 2019-08-17 10:04 | EDM.PDOC ---
ED HPI GENERAL MEDICAL PROBLEM - General Chief Complaint: Syncope Time Seen by Provider: 08/17/19 09:50 Source of Information: Reports: Patient History Limitations: Reports: No Limitations - History of Present Illness INITIAL COMMENTS - FREE TEXT/NARRATIVE: pt comes from home with C/o feeling light headed, nausea and numbness all across her chest/ neck and both arms , denies fainting, chest pain any dyspnea , fever chills or any other associated sx or concerns, tells me this started about 1 hr ago. pt indicate Hx of vag hysterectomy this past Tuesday. also Hx of hypothyroidism and anxiety , HTN. Lower abdomen, lower back & tailbone Pain Score (Numeric/FACES): 4 - Related Data Allergies Allergy/AdvReac Type Severity Reaction Status Date / Time Latex, Natural Rubber Allergy Itching Verified 08/17/19 09:32 orange juice Allergy Other Verified 08/17/19 09:32 prochlorperazine edisylate Allergy Vomiting Verified 08/17/19 09:32 [From Compazine] aspirin Allergy Rash Uncoded 08/17/19 09:32 Home Meds: Home Meds Levothyroxine 125 mcg PO DAILY 03/25/19 [History] Ondansetron [Ondansetron ODT] 4 mg PO Q6H PRN 06/05/19 [History] Acetaminophen/oxyCODONE [Percocet 325-5 MG] 1 tab PO Q4H PRN 08/17/19 [History] Diltiazem HCl [Dilt-XR] 120 mg PO BEDTIME 08/17/19 [History] Ferrous Sulfate [Iron] 325 mg PO DAILY 08/17/19 [History] Ibuprofen [Motrin] 600 mg PO Q4H PRN 08/17/19 [History] Past Medical History Cardiovascular History: Reports: CAD, Hypertension Gastrointestinal History: Reports: Other (See Below) Other Gastrointestinal History: Stomach problems. 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 Musculoskeletal History: fx L ankle, lump in subcutaneous tissues of back thoracic area Psychiatric History: Reports: Anxiety Endocrine/Metabolic History: Reports: Hypothyroidism, Obesity/BMI 30+ Hematologic History: Reports: Anemia, Iron Deficiency Oncologic (Cancer) History: Reports: Thyroid - Infectious Disease History Infectious Disease History: Reports: Chicken Pox - Past Surgical History Head Surgeries/Procedures: Reports: None Cardiovascular Surgical History: Reports: None GI Surgical History: Reports: EGD Female Surgical History: Reports: Hysterectomy, Tubal Ligation Other Female Surgeries/Procedures: vag hyst Endocrine Surgical History: Reports: Thyroidectomy Neurological Surgical History: Reports: Other (See Below) Other Neurological Surgeries/Procedures: Neck surgery. Musculoskeletal Surgical History: Reports: None Social & Family History - Family History Family Medical History: Noncontributory - Tobacco Use Smoking Status *Q: Current Every Day Smoker Years of Tobacco use: 30 Packs/Tins Daily: 3 - Caffeine Use Caffeine Use: Reports: Coffee Caffeine Use Comment: none in last two months - Recreational Drug Use Recreational Drug Use: No - Living Situation & Occupation Living situation: Reports: Occupation: Employed ED ROS GENERAL - Review of Systems Review Of Systems: See Below Constitutional: Reports: No Symptoms Respiratory: Reports: No Symptoms Cardiovascular: Reports: No Symptoms GI/Abdominal: Reports: No Symptoms Musculoskeletal: Reports: No Symptoms Skin: Reports: No Symptoms Neurological: Reports: No Symptoms Psychiatric: Reports: No Symptoms, Anxiety. Denies: Depression ED EXAM, GENERAL - Physical Exam Exam: See Below Exam Limited By: No Limitations General Appearance: Alert, No Apparent Distress, Anxious Nose: Normal Inspection Throat/Mouth: Normal Inspection Neck: Normal Inspection, Supple, Non-Tender Respiratory/Chest: No Respiratory Distress, Lungs Clear, Normal Breath Sounds Cardiovascular: Normal Peripheral Pulses, Regular Rate, Rhythm, No Edema GI/Abdominal: Normal Bowel Sounds, Soft, Non-Tender Extremities: Normal Inspection, Normal Range of Motion Neurological: Alert, Oriented, CN II-XII Intact Course - Vital Signs Text/Narrative:: EKG shows NSR, no acute changes. labs were explained to pt. pt is comfortable after ativan and her presentation today suggest underlying anxiety disorder. pt is stable for discharge home with f/u. she is to use own xanax for recurrent similar sx. Last Recorded V/S: Last Vital Signs Temp 36.4 C 08/17/19 09:21 Pulse 71 08/17/19 09:21 Resp 20 08/17/19 09:21 BP 138/71 08/17/19 09:21 Pulse Ox 100 08/17/19 09:21 - Orders/Labs/Meds Labs: Laboratory Tests 11/29/19 11/29/19 11/29/19 Range/Units 09:35 09:35 09:35 WBC 7.9 (4.5-12.0) X10-3/uL RBC 4.32 (3.23-5.20) x10(6)uL Hgb 11.3 L (11.5-15.5) g/dL Hct 34.7 (30.0-51.3) % MCV 80.5 (80-96) fL MCH 26.1 L (27.7-33.6) pg MCHC 32.4 (32.2-35.4) g/dL RDW 22.5 H (11.5-15.5) % Plt Count 248 (125-369) X10(3)uL MPV 8.8 (7.4-10.4) fL Neut % (Auto) 79.1 (46-82) % Lymph % (Auto) 10.2 L (13-37) % [place] % (Auto) 7.3 (4-12) % Eos % (Auto) 3 (1.0-5.0) % Baso % (Auto) 0 (0-2) % Neut # (Auto) 6.3 (1.6-8.3) # Lymph # (Auto) 0.8 (0.6-5.0) # [place] # (Auto) 0.6 (0.0-1.3) # Eos # (Auto) 0.2 (0.0-0.8) # Baso # (Auto) 0.0 (0.0-0.2) # Sodium 141 (135-145) mmol/L Potassium 3.7 (3.5-5.3) mmol/L Chloride 105 (100-110) mmol/L Carbon Dioxide 27 (21-32) mmol/L BUN 4 L (7-18) mg/dL Creatinine 0.6 (0.55-1.02) mg/dL Est Cr Clr Drug Dosing 85.05 mL/min Estimated GFR (MDRD) > 60 (>60) BUN/Creatinine Ratio 6.7 L (9-20) Glucose 92 (80-116) mg/dL Calcium 7.9 L (8.6-10.2) mg/dL Total Bilirubin 0.5 (0.1-1.3) mg/dL AST 14 D (5-25) IU/L ALT 12 D (12-36) U/L Alkaline Phosphatase 71 (56-112) IU/L Troponin I < 0.017 L (<0.017-0.056) ng/mL Total Protein 6.8 (6.0-8.0) g/dL Albumin 3.3 L (3.5-5.2) g/dL Globulin 3.5 g/dL Albumin/Globulin Ratio 0.9 TSH, Ultra Sensitive 2.53 (0.36-3.74) IU/mL Meds: Medications Discontinued Medications Generic Name Dose Route Start Last Admin Trade Name Freq PRN Reason Stop Dose Admin Lorazepam 1 mg 08/17/19 10:05 08/17/19 10:16 Ativan PO 08/17/19 10:06 1 mg ONETIME ONE Administration Departure - Departure Time of Disposition: 11:05 Disposition: Home, Self-Care 01 Clinical Impression: Anxiety disorder - Discharge Information Referrals: PCP,None [Ordering Only Provider] - Forms: ED Department Discharge
[2019-08-17] MEDS ORDERED: LORazepam 1 MG Tab PO ONE (10:05)
[2019-08-17 20:50] VITALS: BP 127/73; PULSE 69
== END 2019-08-17 11:32 | disposition home or self-care (01) ==
LOC: FB.ED 09:21
DX: F41.9 Anxiety disorder, unspecified (principal); E03.9 Hypothyroidism, unspecified; E66.9 Obesity, unspecified; I25.10 Atherosclerotic heart disease of native coronary artery without angina pectoris; F17.210 Nicotine dependence, cigarettes, uncomplicated; Z88.6 Allergy status to analgesic agent; Z91.040 Latex allergy status; Z91.018 Allergy to other foods; Z79.890 Hormone replacement therapy; Z68.30 Body mass index [BMI] 30.0-30.9, adult
CPT/HCPCS: 36415; 80053; 84443; 84484; 85025; 99284; A9270

== ENCOUNTER 2019-08-25 06:37 | Emergency (ER) | payer OTHER ==
--- NOTE | 2019-08-25 07:49 | EDM.PDOC ---
ED HPI GENERAL MEDICAL PROBLEM - General Chief Complaint: Cardiovascular Problem Stated Complaint: HEART PALPITATIONS Time Seen by Provider: 08/25/19 06:45 Source of Information: Reports: Patient History Limitations: Reports: No Limitations - History of Present Illness INITIAL COMMENTS - FREE TEXT/NARRATIVE: Patient presented to the ED because of palpitations. She can feel her heart pounding and woke her up from her sleep. She saw a health and wellness instructor at [place] and was hook on a Holter Monitor for 1 month and apparently there's nothing wrong with her heart and her palpitations is caused by anxiety. She was started with cymbalta but it causes her hot flushes. - Related Data Allergies Allergy/AdvReac Type Severity Reaction Status Date / Time Latex, Natural Rubber Allergy Itching Verified 08/25/19 07:10 orange juice Allergy Cold Sores Verified 08/25/19 07:14 prochlorperazine edisylate Allergy Vomiting Verified 08/25/19 07:10 [From Compazine] aspirin Allergy Vomiting Uncoded 08/25/19 07:52 Home Meds: Home Meds Levothyroxine 125 mcg PO DAILY 03/25/19 [History] Diltiazem HCl [Dilt-XR] 120 mg PO BEDTIME 08/17/19 [History] Ferrous Sulfate [Iron] 325 mg PO DAILY 08/17/19 [History] DULoxetine [Cymbalta] 20 mg PO DAILY 08/25/19 [History] Docusate Sodium [Colace] 100 mg PO DAILY 08/25/19 [History] Past Medical History Cardiovascular History: Reports: CAD, Hypertension Gastrointestinal History: Reports: Other (See Below) Other Gastrointestinal History: Stomach problems. 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 Musculoskeletal History: fx L ankle, lump in subcutaneous tissues of back thoracic area Psychiatric History: Reports: Anxiety Endocrine/Metabolic History: Reports: Hypothyroidism, Obesity/BMI 30+ Hematologic History: Reports: Anemia, Iron Deficiency Oncologic (Cancer) History: Reports: Thyroid - Infectious Disease History Infectious Disease History: Reports: Chicken Pox - Past Surgical History Head Surgeries/Procedures: Reports: None Cardiovascular Surgical History: Reports: None GI Surgical History: Reports: EGD Female Surgical History: Reports: Hysterectomy, Tubal Ligation Other Female Surgeries/Procedures: vag hyst Endocrine Surgical History: Reports: Thyroidectomy Neurological Surgical History: Reports: Other (See Below) Other Neurological Surgeries/Procedures: Neck surgery. Musculoskeletal Surgical History: Reports: None Social & Family History - Family History Family Medical History: Noncontributory - Tobacco Use Smoking Status *Q: Current Every Day Smoker Years of Tobacco use: 30 Packs/Tins Daily: 0.5 - Caffeine Use Caffeine Use: Reports: Coffee Caffeine Use Comment: none in last two months - Living Situation & Occupation Living situation: Reports: Occupation: Employed ED ROS GENERAL - Review of Systems Review Of Systems: See Below Constitutional: Reports: No Symptoms HEENT: Reports: No Symptoms Respiratory: Reports: No Symptoms Cardiovascular: Reports: Palpitations Endocrine: Reports: No Symptoms GI/Abdominal: Reports: No Symptoms Skin: Reports: No Symptoms Neurological: Reports: No Symptoms Psychiatric: Reports: Anxiety, Depression Hematologic/Lymphatic: Reports: No Symptoms Immunologic: Reports: No Symptoms ED EXAM, GENERAL - Physical Exam Exam: See Below Exam Limited By: No Limitations General Appearance: Alert, No Apparent Distress Nose: Normal Inspection, Normal Mucosa Throat/Mouth: Normal Inspection, Normal Lips, Normal Teeth, Normal Gums, Normal Oropharynx, Normal Voice Head: Atraumatic, Normocephalic Neck: Normal Inspection, Supple, Non-Tender, Full Range of Motion Respiratory/Chest: No Respiratory Distress, Lungs Clear, Normal Breath Sounds, No Accessory Muscle Use Cardiovascular: Normal Peripheral Pulses, Regular Rate, Rhythm, No Edema, No Murmur, No Rub GI/Abdominal: Normal Bowel Sounds, Soft, Non-Tender, No Organomegaly, No Distention Extremities: Normal Inspection, Normal Range of Motion, Non-Tender, No Pedal Edema, Normal Capillary Refill Neurological: Alert, Oriented, CN II-XII Intact, Normal Cognition, Normal Gait, Normal Reflexes, No Motor/Sensory Deficits Course - Vital Signs Text/Narrative:: reassurance start on klonopin 0.5 mg BID and lamictal 25 mg BID Last Recorded V/S: Last Vital Signs Temp 36.7 C 08/25/19 07:45 Pulse 55 L 08/25/19 07:45 Resp 14 08/25/19 07:45 BP 137/85 08/25/19 07:45 Pulse Ox 97 08/25/19 07:45 - Orders/Labs/Meds Orders: Active Orders 24 hr Category Date Time Status EKG Documentation Completion [RC] ASDIRECTED Care 08/25/19 06:48 Active EKG 12 Lead [EK] Routine Ther 08/25/19 06:48 Ordered Departure - Departure Time of Disposition: 07:45 Disposition: Home, Self-Care 01 Condition: Good Clinical Impression: Palpitations Instructions: Palpitations, [id number] Referrals: PCP,Not In Area [Primary Care Provider] - Forms: ED Department Discharge Additional Instructions: please read discharge instructions on palpitations take lamictal 25 mg twice daily klonopin 0.5 mg twice daily folllow up with your doctor in a week - My Orders Last 24 Hours: My Active Orders 08/25/19 06:48 EKG Documentation Completion [RC] ASDIRECTED EKG 12 Lead [EK] Routine - Assessment/Plan Last 24 Hours: My Active Orders 08/25/19 06:48 EKG Documentation Completion [RC] ASDIRECTED EKG 12 Lead [EK] Routine
[2019-08-25 08:24] VITALS: BP 137/85; PULSE 55
== END 2019-08-25 08:00 | disposition home or self-care (01) ==
LOC: FB.ED 06:37
DX: R00.2 Palpitations (principal); I10 Essential (primary) hypertension; I25.10 Atherosclerotic heart disease of native coronary artery without angina pectoris; F41.9 Anxiety disorder, unspecified; E03.9 Hypothyroidism, unspecified; D64.9 Anemia, unspecified; E66.9 Obesity, unspecified; Z68.29 Body mass index [BMI] 29.0-29.9, adult; F17.210 Nicotine dependence, cigarettes, uncomplicated; Z88.8 Allergy status to other drugs, medicaments and biological substances; Z91.018 Allergy to other foods; Z91.040 Latex allergy status; Z79.899 Other long term (current) drug therapy
CPT/HCPCS: 93005; 99285-25

== ENCOUNTER 2019-09-21 13:49 | Emergency (ER) | payer OTHER ==
--- NOTE | 2019-09-21 14:29 | EDM.PDOC ---
ED HPI GENERAL MEDICAL PROBLEM - General Chief Complaint: Cardiovascular Problem Stated Complaint: my heart stopped Time Seen by Provider: 09/21/19 14:00 Source of Information: Reports: Patient, Old Records History Limitations: Reports: No Limitations - History of Present Illness INITIAL COMMENTS - FREE TEXT/NARRATIVE: Darline returns to [facility] ED with ongoing sxs of palpitations. These occur sporadically, detected with a presumed cardiac palpitations, and recorded on her phone as a pressure wave form of lower amplitude followed by one of a larger amplitude. The pattern is suggestive of a PAC, although the actual electrical wave form is not determined. A 12 lead EKG noted NSR without dysrhytmmia. She has seen a route delivery service driver in the past, obtained a GXT and event monitor, and tried meds including metoprolol and diltiazem currently without benefit. She has also been prescribed anxiolytics that have not been helpful. - Related Data Allergies Allergy/AdvReac Type Severity Reaction Status Date / Time Latex, Natural Rubber Allergy Itching Verified 08/25/19 07:10 orange juice Allergy Cold Sores Verified 08/25/19 07:14 prochlorperazine edisylate Allergy Vomiting Verified 08/25/19 07:10 [From Compazine] aspirin Allergy Vomiting Uncoded 08/25/19 07:52 Home Meds: Home Meds Levothyroxine 125 mcg PO DAILY 03/25/19 [History] Diltiazem HCl [Dilt-XR] 120 mg PO BEDTIME 08/17/19 [History] Ferrous Sulfate [Iron] 325 mg PO DAILY 08/17/19 [History] DULoxetine [Cymbalta] 20 mg PO DAILY 08/25/19 [History] Docusate Sodium [Colace] 100 mg PO DAILY 08/25/19 [History] Past Medical History Cardiovascular History: Reports: CAD, Hypertension Other Cardiovascular History: Heart palipitations. Gastrointestinal History: Reports: Other (See Below) Other Gastrointestinal History: Stomach problems. 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 Musculoskeletal History: fx L ankle, lump in subcutaneous tissues of back thoracic area Psychiatric History: Reports: Anxiety Endocrine/Metabolic History: Reports: Hypothyroidism, Obesity/BMI 30+ Hematologic History: Reports: Anemia, Iron Deficiency Oncologic (Cancer) History: Reports: Thyroid - Infectious Disease History Infectious Disease History: Reports: Chicken Pox - Past Surgical History Head Surgeries/Procedures: Reports: None Cardiovascular Surgical History: Reports: None GI Surgical History: Reports: EGD Female Surgical History: Reports: Hysterectomy, Tubal Ligation Other Female Surgeries/Procedures: vag hyst Endocrine Surgical History: Reports: Thyroidectomy Neurological Surgical History: Reports: Other (See Below) Other Neurological Surgeries/Procedures: Neck surgery. Musculoskeletal Surgical History: Reports: None Social & Family History - Family History Family Medical History: Noncontributory - Caffeine Use Caffeine Use: Reports: Coffee Caffeine Use Comment: none in last two months - Living Situation & Occupation Living situation: Reports: Occupation: Employed ED ROS GENERAL - Review of Systems Review Of Systems: Comprehensive ROS is negative, except as noted in HPI. ED EXAM, GENERAL - Physical Exam Exam: See Below Exam Limited By: No Limitations General Appearance: Alert, WD/WN, No Apparent Distress, Anxious Head: Normocephalic Neck: Normal Inspection, Supple, Non-Tender Respiratory/Chest: Lungs Clear, Chest Non-Tender Cardiovascular: Normal Peripheral Pulses, Regular Rate, Rhythm, No Edema, No Gallop, No JVD, No Murmur, No Rub GI/Abdominal: Soft, No Organomegaly, No Distention, No Mass (Female) Exam: Deferred Rectal (Female) Exam: Deferred Back Exam: Normal Inspection Extremities: Normal Inspection Neurological: Alert, Oriented, CN II-XII Intact, Normal Cognition, No Motor/ Sensory Deficits Psychiatric: Anxious Skin Exam: Warm, Dry, Intact, Normal Color, No Rash Lymphatic: No Adenopathy Course - Vital Signs Text/Narrative:: No meds were dispensed during ED visit. Departure - Departure Time of Disposition: 14:30 Disposition: Home, Self-Care 01 Condition: Good Clinical Impression: Palpitations Referrals: PCP,None [Primary Care Provider] - - Problem List & Annotations (1) Palpitations SNOMED Code(s): 19539385 Code(s): R00.2 - PALPITATIONS Status: Acute Current Visit: Yes Annotation/Comment:: Palpitations NOS. No further work up at the ED, but I did arrange an appt with PCP for follow up. - Problem List Review Problem List Initiated/Reviewed/Updated: Yes - Assessment/Plan Plan: Follow up with PCP.
[2019-09-21 15:00] VITALS: PULSE 79
[2019-09-21 15:03] VITALS: BP 142/86
== END 2019-09-21 14:40 | disposition home or self-care (01) ==
LOC: FB.ED 13:49
DX: R00.2 Palpitations (principal); I10 Essential (primary) hypertension; I25.10 Atherosclerotic heart disease of native coronary artery without angina pectoris; E03.9 Hypothyroidism, unspecified; E66.9 Obesity, unspecified; D64.9 Anemia, unspecified; Z79.899 Other long term (current) drug therapy; F41.9 Anxiety disorder, unspecified; Z98.51 Tubal ligation status; Z90.710 Acquired absence of both cervix and uterus; Z91.040 Latex allergy status; Z88.6 Allergy status to analgesic agent; Z91.018 Allergy to other foods
CPT/HCPCS: 93005; 99284-25

== ENCOUNTER 2019-09-29 13:56 | Emergency (ER) | payer OTHER ==
--- NOTE | 2019-09-29 14:19 | EDM.PDOC ---
ED HPI GENERAL MEDICAL PROBLEM - General Chief Complaint: Cardiovascular Problem Stated Complaint: IRREGULAR HEART BEAT Time Seen by Provider: 09/29/19 14:00 Source of Information: Reports: Patient History Limitations: Reports: No Limitations - History of Present Illness INITIAL COMMENTS - FREE TEXT/NARRATIVE: pt comes in ambulatory to Er with concerns for skipping heart beats on and off since new years, denies any chest pain, SOB, dizziness or any other associated sx or concerns , was seen for this by her PCP dr Tate and a holter monitor placed . - Related Data Allergies Allergy/AdvReac Type Severity Reaction Status Date / Time Latex, Natural Rubber Allergy Itching Verified 09/21/19 14:50 orange juice Allergy Cold Sores Verified 09/21/19 14:50 prochlorperazine edisylate Allergy Vomiting Verified 09/21/19 14:50 [From Compazine] aspirin Allergy Vomiting Uncoded 08/25/19 07:52 Home Meds: Home Meds Levothyroxine 125 mcg PO DAILY 03/25/19 [History] DULoxetine [Cymbalta] 20 mg PO DAILY 08/25/19 [History] Diltiazem [Cardizem] 120 mg PO DAILY 09/21/19 [History] Past Medical History Cardiovascular History: Reports: CAD, Hypertension Other Cardiovascular History: Heart palipitations. Gastrointestinal History: Reports: Other (See Below) Other Gastrointestinal History: Stomach problems. 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: Other Musculoskeletal History: fx L ankle, lump in subcutaneous tissues of back thoracic area Psychiatric History: Reports: Anxiety Endocrine/Metabolic History: Reports: Hypothyroidism, Obesity/BMI 30+ Hematologic History: Reports: Anemia, Iron Deficiency Oncologic (Cancer) History: Reports: Thyroid - Infectious Disease History Infectious Disease History: Reports: Chicken Pox - Past Surgical History Head Surgeries/Procedures: Reports: None Cardiovascular Surgical History: Reports: None GI Surgical History: Reports: EGD Female Surgical History: Reports: Hysterectomy, Tubal Ligation Other Female Surgeries/Procedures: vag hyst Endocrine Surgical History: Reports: Thyroidectomy Neurological Surgical History: Reports: Other (See Below) Other Neurological Surgeries/Procedures: Neck surgery. Musculoskeletal Surgical History: Reports: None Social & Family History - Family History Family Medical History: Noncontributory - Caffeine Use Caffeine Use: Reports: Coffee Caffeine Use Comment: none in last two months - Living Situation & Occupation Living situation: Reports: Occupation: Employed ED ROS GENERAL - Review of Systems Review Of Systems: See Below Constitutional: Reports: No Symptoms Respiratory: Reports: No Symptoms Cardiovascular: Denies: Chest Pain, Blood Pressure Problem, Claudication, Dyspnea on Exertion, Lightheadedness, Palpitations GI/Abdominal: Reports: No Symptoms Musculoskeletal: Reports: No Symptoms Skin: Reports: No Symptoms Neurological: Reports: No Symptoms ED EXAM, GENERAL - Physical Exam Exam: See Below Exam Limited By: No Limitations General Appearance: Alert, No Apparent Distress Nose: Normal Inspection Throat/Mouth: Normal Inspection, Normal Lips Head: Atraumatic, Normocephalic Neck: Normal Inspection, Supple Respiratory/Chest: No Respiratory Distress, Lungs Clear Cardiovascular: Regular Rate, Rhythm, No Murmur GI/Abdominal: Normal Bowel Sounds, Soft, Non-Tender Extremities: Normal Inspection, Normal Range of Motion Neurological: Alert, Oriented, CN II-XII Intact Skin Exam: Warm Course - Vital Signs Text/Narrative:: trop is neg / labs unremarkable , EKG shows sins rhythm with occasional atrial premature complex . pt is comfortable here, she is medically stable to continue follow up as out- patient with her PCP as planned. pt was advised meanwhile to avoid any caffeinated beverages and tobacco use . - Orders/Labs/Meds Orders: Active Orders 24 hr Category Date Time Status EKG Documentation Completion [RC] ASDIRECTED Care 09/29/19 14:22 Active EKG 12 Lead [EK] Routine Ther 09/29/19 14:21 Ordered Labs: Laboratory Tests 09/29/19 09/29/19 09/29/19 Range/Units 14:43 14:43 14:43 WBC 8.2 (4.5-12.0) X10-3/uL RBC 5.13 (3.23-5.20) x10(6)uL Hgb 13.7 (11.5-15.5) g/dL Hct 42.9 (30.0-51.3) % MCV 83.6 (80-96) fL MCH 26.8 L (27.7-33.6) pg MCHC 32.0 L (32.2-35.4) g/dL RDW 14.1 (11.5-15.5) % Plt Count 321 (125-369) X10(3)uL MPV 7.8 (7.4-10.4) fL Neut % (Auto) 71.3 (46-82) % Lymph % (Auto) 20.7 (13-37) % Rogers % (Auto) 6.5 (4-12) % Eos % (Auto) 1 (1.0-5.0) % Baso % (Auto) 0 (0-2) % Neut # (Auto) 5.8 (1.6-8.3) # Lymph # (Auto) 1.7 (0.6-5.0) # Rogers # (Auto) 0.5 (0.0-1.3) # Eos # (Auto) 0.1 (0.0-0.8) # Baso # (Auto) 0.0 (0.0-0.2) # Sodium 142 (135-145) mmol/L Potassium 3.6 (3.5-5.3) mmol/L Chloride 105 (100-110) mmol/L Carbon Dioxide 30 (21-32) mmol/L BUN 9 (7-18) mg/dL Creatinine 0.6 (0.55-1.02) mg/dL Est Cr Clr Drug Dosing TNP Estimated GFR (MDRD) > 60 (>60) BUN/Creatinine Ratio 15.0 (9-20) Glucose 101 (80-116) mg/dL Calcium 8.2 L (8.6-10.2) mg/dL Total Bilirubin 0.2 (0.1-1.3) mg/dL AST 16 D (5-25) IU/L ALT 18 D (12-36) U/L Alkaline Phosphatase 80 (56-112) IU/L Troponin I < 0.017 L (<0.017-0.056) ng/mL Total Protein 6.7 (6.0-8.0) g/dL Albumin 3.4 L (3.5-5.2) g/dL Globulin 3.3 g/dL Albumin/Globulin Ratio 1.0 Departure - Departure Time of Disposition: 15:00 Disposition: Home, Self-Care 01 Clinical Impression: Palpitation Referrals: Tim Brown MD [Primary Care Provider] - Forms: ED Department Discharge Sepsis Event Note - Focused Exam Date Exam was Performed: 09/29/19 Time Exam was Performed: 15:21 - My Orders Last 24 Hours: My Active Orders 09/29/19 14:21 EKG 12 Lead [EK] Routine 09/29/19 14:22 EKG Documentation Completion [RC] ASDIRECTED - Assessment/Plan Last 24 Hours: My Active Orders 09/29/19 14:21 EKG 12 Lead [EK] Routine 09/29/19 14:22 EKG Documentation Completion [RC] ASDIRECTED
[2019-09-29 18:33] VITALS: BP 125/75; PULSE 71
== END 2019-09-29 15:55 | disposition home or self-care (01) ==
LOC: FB.ED 13:56
DX: R00.2 Palpitations (principal); I10 Essential (primary) hypertension; I25.10 Atherosclerotic heart disease of native coronary artery without angina pectoris; E03.9 Hypothyroidism, unspecified; E66.9 Obesity, unspecified; F41.9 Anxiety disorder, unspecified; Z98.51 Tubal ligation status; Z90.710 Acquired absence of both cervix and uterus; Z79.899 Other long term (current) drug therapy; Z91.040 Latex allergy status; Z88.6 Allergy status to analgesic agent; Z88.8 Allergy status to other drugs, medicaments and biological substances
CPT/HCPCS: 36415; 80053; 84484; 85025; 93005; 99285-25

== ENCOUNTER 2019-10-01 17:30 | Emergency (ER) | payer OTHER ==
--- NOTE | 2019-10-01 18:20 | EDM.PDOC ---
ED HPI GENERAL MEDICAL PROBLEM - General Chief Complaint: Chest Pain Stated Complaint: IRREGULAR HEARBEAT Time Seen by Provider: 10/01/19 17:45 Source of Information: Reports: Patient History Limitations: Reports: No Limitations - History of Present Illness INITIAL COMMENTS - FREE TEXT/NARRATIVE: having worsening palpitations today at home states she had a cigarette , some coffee did take klonipine but still had the palpitations has been on holter monitor for one week states she was on diltiazem and stopped metopropol Onset: Today Onset Date: 10/01/19 Duration: Getting Worse Location: Reports: Chest Quality: Reports: Ache, Same as Previous Episode, Throbbing Severity: Moderate Improves with: Reports: Rest Worsens with: Reports: Eating Context: Denies: Activity, Exercise Associated Symptoms: Reports: Malaise. 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 chest Pain Score (Numeric/FACES): 5 - Related Data Allergies Allergy/AdvReac Type Severity Reaction Status Date / Time Latex, Natural Rubber Allergy Itching Verified 09/21/19 14:50 orange juice Allergy Cold Sores Verified 09/21/19 14:50 prochlorperazine edisylate Allergy Vomiting Verified 09/21/19 14:50 [From Compazine] aspirin Allergy Vomiting Uncoded 08/25/19 07:52 Home Meds: Home Meds Levothyroxine 125 mcg PO DAILY 03/25/19 [History] DULoxetine [Cymbalta] 20 mg PO DAILY 08/25/19 [History] Diltiazem [Cardizem] 120 mg PO DAILY 09/21/19 [History] Past Medical History HEENT History: Reports: None Cardiovascular History: Reports: CAD, Hypertension Other Cardiovascular History: Heart palipitations. Respiratory History: Reports: None Gastrointestinal History: Reports: Other (See Below) Other Gastrointestinal History: Stomach problems. 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 Musculoskeletal History: fx L ankle, lump in subcutaneous tissues of back thoracic area Psychiatric History: Reports: Anxiety Endocrine/Metabolic History: Reports: Hypothyroidism, Obesity/BMI 30+ Hematologic History: Reports: Anemia, Iron Deficiency Oncologic (Cancer) History: Reports: Thyroid - Infectious Disease History Infectious Disease History: Reports: Chicken Pox - Past Surgical History Head Surgeries/Procedures: Reports: None Cardiovascular Surgical History: Reports: None GI Surgical History: Reports: EGD Female Surgical History: Reports: Hysterectomy, Tubal Ligation Other Female Surgeries/Procedures: vag hyst Endocrine Surgical History: Reports: Thyroidectomy Neurological Surgical History: Reports: Other (See Below) Other Neurological Surgeries/Procedures: Neck surgery. Musculoskeletal Surgical History: Reports: None Social & Family History - Family History Cardiac: Reports: [facility] - Caffeine Use Caffeine Use: Reports: Coffee Caffeine Use Comment: none in last two months - Living Situation & Occupation Living situation: Reports: Occupation: Employed ED ROS GENERAL - Review of Systems Review Of Systems: See Below Constitutional: Reports: Weakness HEENT: Reports: No Symptoms Respiratory: Reports: No Symptoms. Denies: Cough Cardiovascular: Reports: Chest Pain, Dyspnea on Exertion, Lightheadedness, Palpitations. Denies: PND, Syncope Endocrine: Reports: Fatigue GI/Abdominal: Reports: No Symptoms Musculoskeletal: Reports: No Symptoms Skin: Reports: No Symptoms Neurological: Reports: No Symptoms Psychiatric: Reports: Agitation, Anxiety Hematologic/Lymphatic: Reports: No Symptoms Immunologic: Reports: No Symptoms ED EXAM, GENERAL - Physical Exam Exam: See Below Exam Limited By: No Limitations General Appearance: Alert, WD/WN, No Apparent Distress Eye Exam: Bilateral Eye: EOMI Ears: Hearing Grossly Normal, Normal TMs Nose: Normal Inspection Throat/Mouth: Normal Inspection Head: Atraumatic Neck: Supple, Non-Tender, Full Range of Motion Respiratory/Chest: No Respiratory Distress, Lungs Clear Cardiovascular: Normal Peripheral Pulses, Regular Rate, Rhythm GI/Abdominal: Soft, Non-Tender Back Exam: Normal Inspection, Full Range of Motion Extremities: Normal Range of Motion, Non-Tender, No Pedal Edema, Normal Capillary Refill Neurological: Alert, Oriented, CN II-XII Intact Psychiatric: Anxious Skin Exam: Warm EKG INTERPRETATION EKG Date: 10/01/19 Time: 17:40 Rhythm: NSR Hollis: Normal P-Wave: Present QRS: Normal ST-T: Normal Comparison: No Change EKG Interpretation Comments: normal EKG Course - Vital Signs Last Recorded V/S: Last Vital Signs Temp 36.6 C 10/01/19 17:30 Pulse 65 10/01/19 17:30 Resp 14 10/01/19 17:30 BP 129/73 10/01/19 17:30 Pulse Ox 98 10/01/19 17:30 - Orders/Labs/Meds Orders: Active Orders 24 hr Category Date Time Status EKG Documentation Completion [RC] ASDIRECTED Care 10/01/19 18:07 Active EKG 12 Lead [EK] Routine Ther 10/01/19 18:07 Ordered Labs: Laboratory Tests 10/01/19 10/01/19 10/01/19 Range/Units 18:15 18:15 18:15 WBC 6.0 (4.5-12.0) X10-3/uL RBC 5.12 (3.23-5.20) x10(6)uL Hgb 13.7 (11.5-15.5) g/dL Hct 42.7 (30.0-51.3) % MCV 83.4 (80-96) fL MCH 26.8 L (27.7-33.6) pg MCHC 32.1 L (32.2-35.4) g/dL RDW 13.3 (11.5-15.5) % Plt Count 314 (125-369) X10(3)uL MPV 7.7 (7.4-10.4) fL Neut % (Auto) 60.1 (46-82) % Lymph % (Auto) 30.6 (13-37) % [place] % (Auto) 7.6 (4-12) % Eos % (Auto) 1 (1.0-5.0) % Baso % (Auto) 0 (0-2) % Neut # (Auto) 3.6 (1.6-8.3) # Lymph # (Auto) 1.8 (0.6-5.0) # [place] # (Auto) 0.5 (0.0-1.3) # Eos # (Auto) 0.1 (0.0-0.8) # Baso # (Auto) 0.0 (0.0-0.2) # Sodium 143 (135-145) mmol/L Potassium 3.5 (3.5-5.3) mmol/L Chloride 106 (100-110) mmol/L Carbon Dioxide 27 (21-32) mmol/L BUN 5 L (7-18) mg/dL Creatinine 0.4 L (0.55-1.02) mg/dL Est Cr Clr Drug Dosing TNP Estimated GFR (MDRD) > 60 (>60) BUN/Creatinine Ratio 12.5 (9-20) Glucose 87 (80-116) mg/dL Calcium 8.5 L (8.6-10.2) mg/dL Magnesium 2.3 (1.8-2.5) mg/dL Troponin I < 0.017 L (<0.017-0.056) ng/mL Urine Color (YELLOW) Urine Appearance (CLEAR) Urine pH (5.0-6.5) Ur Specific [place] (1.010-1.025) Urine Protein (NEGATIVE) mg/dL Urine Glucose (UA) (NORMAL) mg/dL Urine Ketones (NEGATIVE) mg/dL Urine Occult Blood (NEGATIVE) Urine Nitrite (NEGATIVE) Urine Bilirubin (NEGATIVE) Urine Urobilinogen (NEGATIVE) mg/dL Ur Leukocyte Esterase (NEGATIVE) Urine RBC (0-5) Urine WBC (0-5) Ur Squamous Epith Cells (NS,R,O) Urine Bacteria (NS) 10/01/19 Range/Units 19:17 WBC (4.5-12.0) X10-3/uL RBC (3.23-5.20) x10(6)uL Hgb (11.5-15.5) g/dL Hct (30.0-51.3) % MCV (80-96) fL MCH (27.7-33.6) pg MCHC (32.2-35.4) g/dL RDW (11.5-15.5) % Plt Count (125-369) X10(3)uL MPV (7.4-10.4) fL Neut % (Auto) (46-82) % Lymph % (Auto) (13-37) % [place] % (Auto) (4-12) % Eos % (Auto) (1.0-5.0) % Baso % (Auto) (0-2) % Neut # (Auto) (1.6-8.3) # Lymph # (Auto) (0.6-5.0) # [place] # (Auto) (0.0-1.3) # Eos # (Auto) (0.0-0.8) # Baso # (Auto) (0.0-0.2) # Sodium (135-145) mmol/L Potassium (3.5-5.3) mmol/L Chloride (100-110) mmol/L Carbon Dioxide (21-32) mmol/L BUN (7-18) mg/dL Creatinine (0.55-1.02) mg/dL Est Cr Clr Drug Dosing Estimated GFR (MDRD) (>60) BUN/Creatinine Ratio (9-20) Glucose (80-116) mg/dL Calcium (8.6-10.2) mg/dL Magnesium (1.8-2.5) mg/dL Troponin I (<0.017-0.056) ng/mL Urine Color Yellow (YELLOW) Urine Appearance Clear (CLEAR) Urine pH 7.0 H (5.0-6.5) Ur Specific [place] 1.005 L (1.010-1.025) Urine Protein Negative (NEGATIVE) mg/dL Urine Glucose (UA) Normal (NORMAL) mg/dL Urine Ketones Negative (NEGATIVE) mg/dL Urine Occult Blood Negative (NEGATIVE) Urine Nitrite Negative (NEGATIVE) Urine Bilirubin Negative (NEGATIVE) Urine Urobilinogen Normal (NEGATIVE) mg/dL Ur Leukocyte Esterase Negative (NEGATIVE) Urine RBC Not seen (0-5) Urine WBC 0-5 (0-5) Ur Squamous Epith Cells Rare (NS,R,O) Urine Bacteria Rare H (NS) - Re-Assessments/Exams Free Text/Narrative Re-Assessment/Exam: 10/01/19 19:41 labs are normal , EKG normal no repeat episode of palpitations Departure - Departure Time of Disposition: 19:40 Disposition: Home, Self-Care 01 Condition: Good Clinical Impression: Anxiety disorder Instructions: Nonspecific Chest Pain, [id number], Palpitations, [id number] Referrals: Tim Brown MD [Primary Care Provider] - Forms: ED Department Discharge Sepsis Event Note - Focused Exam Vital Signs: Vital Signs Temp Pulse Resp BP Pulse Ox 10/01/19 17:30 36.6 C 65 14 129/73 98 Date Exam was Performed: 10/01/19 Time Exam was Performed: 19:39 - My Orders Last 24 Hours: My Active Orders 10/01/19 18:07 EKG Documentation Completion [RC] ASDIRECTED EKG 12 Lead [EK] Routine - Assessment/Plan Last 24 Hours: My Active Orders 10/01/19 18:07 EKG Documentation Completion [RC] ASDIRECTED EKG 12 Lead [EK] Routine
[2019-10-01 19:55] VITALS: PULSE 68
[2019-10-01 19:57] VITALS: BP 144/87
== END 2019-10-01 19:45 | disposition home or self-care (01) ==
LOC: FB.ED 17:30
DX: F41.9 Anxiety disorder, unspecified (principal); I10 Essential (primary) hypertension; Z88.8 Allergy status to other drugs, medicaments and biological substances; Z91.040 Latex allergy status; Z91.018 Allergy to other foods; Z88.6 Allergy status to analgesic agent; Z79.899 Other long term (current) drug therapy
CPT/HCPCS: 36415; 80048; 81001; 83735; 84484; 85025; 93005; 99285-25

== ENCOUNTER 2022-12-17 07:55 | Emergency (ER) | payer OTHER ==
[2022-12-17 08:30] LABS: ESTIMATED GFR 107 mL/min (>60)
[2022-12-17] MEDS ORDERED: Ketorolac 30 MG/ML SDV IM STA (08:59)
[2022-12-17] MEDS ORDERED: Ondansetron 4 MG Tab.DIS PO ONE (08:59)
[2022-12-17 11:36] VITALS: BP 127/87; PULSE 61
== END 2022-12-17 10:40 | disposition home or self-care (01) ==
LOC: FB.ED 07:55
DX: G43.909 Migraine, unspecified, not intractable, without status migrainosus (principal); E83.51 Hypocalcemia; I25.10 Atherosclerotic heart disease of native coronary artery without angina pectoris; E78.00 Pure hypercholesterolemia, unspecified; I10 Essential (primary) hypertension; E03.9 Hypothyroidism, unspecified; E66.9 Obesity, unspecified; Z68.32 Body mass index [BMI] 32.0-32.9, adult; Z72.0 Tobacco use; Z91.040 Latex allergy status; Z91.018 Allergy to other foods; Z88.8 Allergy status to other drugs, medicaments and biological substances; Z79.899 Other long term (current) drug therapy
CPT/HCPCS: 36415; 70450; 80053; 84484; 85025; 93005; 96372; 99285; J1885; Q0162

== ENCOUNTER 2023-04-26 10:14 | Emergency (ER) | payer OTHER ==
[2023-04-26] MEDS ORDERED: Aluminum Hydroxide/Magnesium Hydroxide Susp 30 ML Cup PO ONE (10:46)
[2023-04-26] MEDS ORDERED: Ondansetron 4 MG/2 ML SDV IVPUSH ONE (10:47)
[2023-04-26] MEDS ORDERED: Lidocaine 2% HCl 6 ML Jel MM ONE (11:00)
[2023-04-26 11:26] LABS: BASOPHILS PERCENT AUTO 0.4 % (0.2-1.5); EOSINOPHILS ABSOLUTE AUTO 0.1 x10-3/uL (0.0-0.8); EOSINOPHILS PERCENT AUTO 0.9 % (0.6-8.1); HEMATOCRIT 43.9 % (34.2-48.2); HEMOGLOBIN 15.1 g/dL (11.4-15.5); LYMPHOCYTES ABSOLUTE AUTO 1.6 x10-3/uL (1.0-4.4); LYMPHOCYTES PERCENT AUTO 21.4 % (18.4-52.1); MEAN CORPUSCULAR HEMOGLOBIN 30.1 pg (23.9-33.9); MEAN CORPUSCULAR HGB CONC 34.4 g/dL (31.9-34.8); MEAN CORPUSCULAR VOLUME 87.4 fL (76.7-100.5); MEAN PLATELET VOLUME 7.9 fL (7.1-12.4); MONOCYTES ABSOLUTE AUTO 0.5 x10-3/uL (0.3-1.0); NEUTROPHILS ABSOLUTE AUTO 5.4 x10-3/uL (1.5-6.3); NEUTROPHILS PERCENT AUTO 70.3 % (30.8-76.2); PLATELET COUNT,PLT 256 x10(3)uL (151-488); RED BLOOD CELL COUNT 5.03 x10(6)uL (3.60-5.20); RED CELL DISTRIBUTION WIDTH 13.3 % (12.3-16.5); WHITE BLOOD CELL COUNT,WBC 7.6 x10-3/uL (3.0-10.3)
[2023-04-26 11:33] LABS: BLOOD UREA NITROGEN,BUN 11 mg/dL (7-18); BUN/CREATININE RATIO 13.8 (9-20); CALCIUM 8.4 mg/dL (8.6-10.2); CARBON DIOXIDE,CO2 26 mmol/L (21-32); CHLORIDE,CL 103 mmol/L (100-110); CREATININE 0.8 mg/dL (0.55-1.02); ESTIMATED GFR 90 mL/min (>60); GLUCOSE RANDOM 104 mg/dL (80-116); SODIUM,NA 140 mmol/L (135-145)
[2023-04-26 11:36] LABS: BILIRUBIN,URINE NEGATIVE (NEGATIVE); GLUCOSE,URINE NORMAL (NORMAL); KETONES,URINE NEGATIVE (NEGATIVE); LEUKOCYTE ESTERASE,URINE NEGATIVE (NEGATIVE); NITRITE,URINE NEGATIVE (NEGATIVE); OCCULT BLOOD,URINE NEGATIVE (NEGATIVE); PROTEIN,URINE NEGATIVE (NEGATIVE); UROBILINOGEN,URINE NORMAL (NEGATIVE)
[2023-04-26] MEDS ORDERED: Meclizine 25 MG Tab PO ONE (11:52)
[2023-04-26 11:53] LABS: APPEARANCE,URINE CLEAR (CLEAR); BACTERIA,URINE OCCASIONAL (NS); COLOR,URINE YELLOW (YELLOW); RBC,URINE 0-5 (0-5); SQUAMOUS EPITHELIAL CELLS,UR OCCASIONAL (NS,R,O); WBC,URINE 0-5 (0-5)
[2023-04-26 13:11] VITALS: BP 116/70; PULSE 67
== END 2023-04-26 13:10 | disposition home or self-care (01) ==
LOC: FB.ED 10:14
DX: K29.70 Gastritis, unspecified, without bleeding (principal); K21.9 Gastro-esophageal reflux disease without esophagitis; H81.10 Benign paroxysmal vertigo, unspecified ear; F17.210 Nicotine dependence, cigarettes, uncomplicated; I25.10 Atherosclerotic heart disease of native coronary artery without angina pectoris; E78.00 Pure hypercholesterolemia, unspecified; I10 Essential (primary) hypertension; E03.9 Hypothyroidism, unspecified; E66.9 Obesity, unspecified; Z86.16 Personal history of COVID-19; Z79.899 Other long term (current) drug therapy; Z91.040 Latex allergy status; Z88.6 Allergy status to analgesic agent; Z88.8 Allergy status to other drugs, medicaments and biological substances; Z91.018 Allergy to other foods; Z68.32 Body mass index [BMI] 32.0-32.9, adult
CPT/HCPCS: 36415; 80048; 81001; 85025; 93005; 93010; 96374; 99283; 99284-25; A9270-GY; J2405

== ENCOUNTER 2025-04-03 22:09 | Emergency (ER) | payer OTHER ==
[2025-04-03] MEDS: methylPREDNISolone Sodium Succinate 125 MG/2 ML SDV IM ONE (22:33)
[2025-04-03] MEDS: diphenhydrAMINE 50 MG/ML SDV IM ONE (22:33)
[2025-04-03 23:24] VITALS: BP 141/66; PULSE 83
== END 2025-04-03 23:25 | disposition home or self-care (01) ==
LOC: FB.ED 22:09
DX: L27.0 Generalized skin eruption due to drugs and medicaments taken internally (principal); I25.10 Atherosclerotic heart disease of native coronary artery without angina pectoris; E78.00 Pure hypercholesterolemia, unspecified; I10 Essential (primary) hypertension; K21.9 Gastro-esophageal reflux disease without esophagitis; Z86.16 Personal history of COVID-19; Z91.040 Latex allergy status; Z88.6 Allergy status to analgesic agent; Z91.018 Allergy to other foods; Z79.890 Hormone replacement therapy; Z79.899 Other long term (current) drug therapy
CPT/HCPCS: 96372; 99282; 99283; J1200; J2919